=== PATIENT | male | born 1955 | race Caucasian/White ===

== ENCOUNTER → 2016-09-09 | Outpatient (REF) ==
[~2016-09-09] MED LIST: ASPI-84; LACT1TAB6; MYCO500T34; NR-TACRO1; PREN1TAB39
--- NOTE | 2016-09-09 11:06 | Diagnostic Imaging Report ---
Bilateral shoulder radiographs, 3 views on each side. INDICATION: Bilateral shoulder pain. FINDINGS: Left shoulder: No fracture, dislocation or radiopaque foreign body. No significant arthritic changes seen. Right shoulder: There is mild subchondral sclerosis at the acromioclavicular joint compatible with mild osteoarthritis with no significant osteophytes. No fracture, dislocation or radiopaque foreign body. IMPRESSION: Mild osteoarthritis in the right AC joint. Dictated by: Dictated on workstation # [id number]
--- NOTE | 2016-09-09 11:19 | Diagnostic Imaging Report ---
AP lateral and oblique views of the cervical spine with open-mouth odontoid view. INDICATION: Pain. FINDINGS: There is satisfactory alignment of the cervical spine. The vertebral body heights and disc heights are preserved. There is a satisfactory alignment at the lateral masses of C1 and C2. The oblique projections demonstrate evidence of neural foraminal narrowing of severe degree at C3/C4 level bilaterally. IMPRESSION: Severe bilateral neuroforaminal narrowing at C3/C4 level is suggested. This can be confirmed with CT scan or MRI of the cervical spine. Dictated by: Dictated on workstation # [id number]
== END | disposition home or self-care (01) ==
LOC: OCC 10:16
PROVIDERS: ATTEND Nurse Practitioner Family
CPT/HCPCS: 72050

== ENCOUNTER → 2016-09-09 | Outpatient (REF) ==
--- NOTE | 2016-09-09 17:26 | Diagnostic Imaging Report ---
PROCEDURE: MR imaging cervical spine without contrast. INDICATION: Moving plywood one month prior, felt a pop in right shoulder. Now with bilateral shoulder pain with tingling into the bilateral arms. Denies current neck pain. TECHNIQUE: Multiplanar and multisequence noncontrast MR imaging was performed of the cervical spine. COMPARISON: Radiographs 09/09/2016. FINDINGS: Examination compromised with patient motion artifact. Cervical spinal alignment is relatively anatomic. Cervical vertebral body heights maintained without concerning geographic lesion. Odontoid unremarkable. Cervicocranial junction unremarkable. C2-C3 level unremarkable. C3-C4 level demonstrates a moderate loss of disc space height. Rather prominent endplate osteophyte formation and disc bulges noted. There is presence of spinal canal stenosis. AP dimension of spinal canal narrowed to 6 mm. Rather marked bilateral foraminal narrowing is also present. C4-C5 level demonstrates preservation of disc space height. However, there does appear to be mild endplate osteophyte and slight disc bulge and thickening of the posterior longitudinal ligament. There is some flattening of the ventral thecal sac. AP dimension of spinal canal at 9 mm. Likely mild bilateral foraminal narrowing. C5-C6 level with minimal posterior spondylitic ridging without significant stenosis. C6-C7 level with minimal degenerative changes without significant stenosis. C7-T1 level trace anterolisthesis, otherwise, unremarkable without significant stenosis. There does appear to be suggestion of some altered signal intensity within the cord at C3-C4 level, may be reflective of underlying edema. IMPRESSION: 1. There does appear to be rather significant bilateral foraminal and spinal canal stenosis C3-C4 level owing to disc and osteophyte formation. Early cord edema not excluded and suspect. 2. Mild narrowing but less severe at C4-C5 level. Report was called to KERWIN Yoder at 5:12 p.m., by kade (for ADE) with message left on her direct voice mail. Dictated by: Dictated on workstation # [id number]
--- NOTE | 2016-09-09 19:25 | Diagnostic Imaging Report ---
EXAMINATION: Two views of the skull. INDICATION: Check for metal for MRI. FINDINGS: There is no intraorbital or intracranial radiopaque metallic foreign body seen. The visualized paranasal sinuses appear aerated. IMPRESSION: No metallic foreign body in the orbits or intracranially is seen. Dictated by: Dictated on workstation # [id number]
== END | disposition home or self-care (01) ==
LOC: RAD 15:32
PROVIDERS: ATTEND Nurse Practitioner Family
CPT/HCPCS: 70250; 72141

== ENCOUNTER 2016-12-26 20:56 | Emergency (ER) | payer OTHER ==
[~2016-12-26] VITALS: Ht 175.3 cm; Wt 81.6 kg
[2016-12-26] MEDS ORDERED: METO-333 (21:15)
[2016-12-26] MEDS ORDERED: LACT1CAP8 PO (21:15)
[2016-12-26] MEDS ORDERED: OMEP40CA36 (21:15)
[2016-12-26] MEDS ORDERED: TACR1CAP8 (21:15)
--- NOTE | 2016-12-26 21:43 | Diagnostic Imaging Report ---
INDICATION: Right ankle pain and swelling x2 days AP, oblique, and lateral views of the right ankle were obtained. No definite acute fracture or acute bony abnormality seen. There is soft tissue swelling. There are vascular calcifications. There are chronic changes of the talonavicular joint. There is some calcaneal spurring. IMPRESSION: Chronic findings and soft tissue swelling. No definite acute abnormality. Dictated by: Dictated on workstation # [id number]
--- NOTE | 2016-12-26 21:44 | ED Lower Extremity ---
General Chief Complaint: Lower Extremity Stated Complaint: R FOOT INJ Nursing Triage Note: c/o R ankle pain after taking new boot off Nursing Sepsis Screen: No Definite Risk Source: patient, spouse Exam Limitations: no limitations History of Present Illness Time seen by provider: 21:44 Initial Comments 61 yo male patient presents to the ED with c/o rt ankle pain after taking his boot off yesterday. Location Injury Occurred: home Onset: yesterday Pain/Injury Location: right ankle Method of Injury: twisted Modifying Factors: Worse With Movement Allergies and Home Medications Allergies Coded Allergies: No Known Drug Allergies (Unverified , 09/17/05) Home Medications Aspirin 81 Mg Tablet., (Reported) Lactobacillus Acidophilus 1 Each Tab.chew, (Reported) Lactobacillus Acidophilus 1 Each Capsule, 1 EACH PO, (Reported) Metoprolol Tartrate 25 Mg Tablet, #60 (Reported) Mycophenolate Mofetil 500 Mg Tablet, (Reported) Omeprazole 40 Mg Capsule.dr, #30 (Reported) Vits W-Ca,Fe,Fa(<1MG) 1 Each Tablet, (Reported) Tacrolimus 1 Mg Capsule, #150 (Reported) Constitutional: no symptoms reported Musculoskeletal: see HPI, joint pain, joint swelling Skin: No change in color Psychiatric/Neurological: Denies Numbness, Denies Paresthesia, Denies Tingling , Denies Weakness All Other Systems Reviewed Negative Unless Noted: Yes (Negative excepted noted.) Past Uhvjekq-Lxryku-Twikpk Hx Patient Social History Alcohol Use: Denies Use Recreational Drug Use: No Smoking Status: Never a Smoker Type Used: Cigarettes Recent Foreign Travel: No Contact w/Someone Who Travel: No Recent Infectious Disease Expo: No Recent Hopitalizations: No Surgeries HX Surgeries: Yes Surgeries: Eye Surgery, Kidney Transplant, Orthopedic, Pancreatic, Penile Implant Respiratory Hx Respiratory Disorders: Yes Respiratory Disorders: Asthma Cardiovascular Hx Cardiac Disorders: Yes (CHF) Cardiac Disorders: Cardiomyopathy, Hypertension Neurological Hx Neurological Disorders: No Reproductive System Hx Reproductive Disorders: No Sexually Transmitted Disease: No Genitourinary Hx Genitourinary Disorders: Yes Genitourinary Disorders: Renal Failure Gastrointestinal Hx Gastrointestinal Disorders: No Musculoskeletal Hx Musculoskeletal Disorders: Yes Musculoskeletal Disorders: Fractures Endocrine Hx Endocrine Disorders: Yes Endocrine Disorders: Diabetes, Non-Insulin dep HEENT HX ENT Disorders: Yes (RIGHT EYE RETINOPATHY--S/P LASER SURGERY 1996) HEENT Disorders: Glaucoma Cancer Hx Cancer: No Psychosocial Hx Psychiatric Problems: No Integumentary HX Skin/Integumentary Disorder: No Blood Transfusions Hx Blood Disorders: No Reviewed Nursing Assessment Reviewed/Agree w Nursing PMH: Yes Family Medical History Significant Family History: No Pertinent Family Hx Physical Exam Vital Signs Vital Sign - Last 12Hours 12/26/16 21:05 Temp 98.2 Pulse 75 Resp 18 B/P (MAP) 145/86 Pulse Ox 96 Capillary Refill : Less Than 3 Seconds General Appearance: WD/WN, no apparent distress Cardiovascular: normal peripheral pulses Legs: bilateral leg non-tender, bilateral leg normal inspection, bilateral leg normal range of motion, bilateral leg no evidence of injury Knees: bilateral knee non-tender, bilateral knee normal inspection, bilateral knee normal range of motion, bilateral knee no evidence of injury Ankles: left ankle non-tender, left ankle normal inspection, left ankle normal range of motion, left ankle no evidence of injury, right ankle limited range of motion, right ankle pain, right ankle soft tissue tenderness, right ankle swelling Feet: bilateral foot non-tender, left foot normal inspection, bilateral foot normal range of motion, bilateral foot no evidence of injury, right foot swelling Neurologic/Tendon: normal sensation, normal motor functions, normal tendon functions, responds to pain, no evidence tendon injury Neurologic/Psychiatric: no motor/sensory deficits, alert, normal mood/affect, oriented x 3 Skin: normal color, warm/dry, No ecchymosis Progress/Results/Core Measures Results/Orders My Orders Orders - RACHEL MACHADO Ankle, Right, 3 Views (12/26/16 21:23) Vital Signs/I&O Vital Sign - Last 12Hours 12/26/16 12/26/16 21:05 21:54 Temp 98.2 98.2 Pulse 75 75 Resp 18 18 B/P (MAP) 145/86 Pulse Ox 96 96 Blood Pressure Mean: 105 Diagnostic Imaging Diagonstic Imaging: Xray Plain Films/CT/US/NM/MRI: ankle Comments No definite acute fracture or acute bony abnormality seen. There is soft tissue swelling. There are vascular calcifications. There are chronic changes of the talonavicular joint. There is some calcaneal spurring. IMPRESSION: Chronic findings and soft tissue swelling. No definite acute abnormality. Dictated on workstation # [id number] Reviewed: Reviewed by Me (radiology report reviewed by me) Departure Communication Progress Notes Diagnostic findings discussed with the patient. Plan for discharge to home. Impression Impression: Primary Impression: Right ankle sprain Qualified Codes: S93.401A - Sprain of unspecified ligament of right ankle, initial encounter Disposition: HOME, SELF-CARE Condition: Improved Departure-Patient Inst. Decision time for Depature: 21:45 Referrals: RUBEN LEWIS (PCP) Primary Care Physician VESNA FAUSTIN DO (Family) Primary Care Physician Patient Instructions: Ankle Sprain (DC) Add. Discharge Instructions: All discharge instructions reviewed with patient and/or family. Voiced understanding. Tendinitis strength [id number] as directed for pain. Ibuprofen 800 mg by mouth every 8 hours as needed for pain. Elevate the right ankle on pillows. Ice pack for 20 minute intervals as needed for pain. Dima wrap as instructed. Follow-up with your family practitioner for recheck if no improvement in symptoms in 7-10 days. Return to the emergency department for worsened symptoms or any other concerns. RACHEL MACHADO Dec 26, 2016 21:44
[2016-12-26 21:54] VITALS: BP 145/86
== END 2016-12-26 21:55 | disposition home or self-care (01) ==
LOC: EDUNIT# 20:56 → ER 20:58
DX: S93.401A Sprain of unspecified ligament of right ankle, initial encounter (principal); E11.9 Type 2 diabetes mellitus without complications; I11.0 Hypertensive heart disease with heart failure; I50.9 Heart failure, unspecified; J45.909 Unspecified asthma, uncomplicated; Z87.81 Personal history of (healed) traumatic fracture; Z94.0 Kidney transplant status; Z79.82 Long term (current) use of aspirin; X50.0XXA Overexertion from strenuous movement or load, initial encounter; Y92.009 Unspecified place in unspecified non-institutional (private) residence as the place of occurrence of the external cause
CPT/HCPCS: 73610; 99283

== ENCOUNTER → 2017-02-04 | Outpatient (CLI) | payer OTHER ==
[~2017-02-04] MED LIST changes: +LACT1CAP8 PO; +METO-333; +OMEP40CA36; +TACR1CAP8
--- NOTE | 2017-02-04 16:01 | Diagnostic Imaging Report ---
PROCEDURE: US right lower extremity venous. INDICATION: Right leg pain. EXAMINATION: Grayscale and color Doppler evaluation of the deep veins of the right lower extremity were performed with waveform analysis. FINDINGS: Continuous venous flow is present. No intraluminal filling defect is identified. There is normal compressibility and response to augmentation. No abnormal perivascular fluid collection is identified. IMPRESSION: No ultrasound evidence of right lower extremity deep venous thrombosis. Dictated by: Dictated on workstation # [id number]
== END ==
LOC: RAD 14:52
DX: M79.661 Pain in right lower leg (principal)

== ENCOUNTER → 2017-05-02 | Outpatient (CLI) | payer OTHER ==
--- NOTE | 2017-05-02 18:39 | Diagnostic Imaging Report ---
CLINICAL INDICATION: Patient with thyromegaly. COMPARISONS: None. FINDINGS: THYROID NODULES: There is a 4 mm x 4 mm nodule within the mid to lower right thyroid gland which is hypoechoic and circumscribed. There is another 8 mm x 5 mm x 8 mm heterogeneous hypoechoic nodule within the mid to inferior aspect of left thyroid gland. THYROID GLAND: Besides the thyroid nodules, the thyroid gland has normal size, shape and echogenicity. The right lobe measures 4.5 cm x 2.0 cm x 1.9 cm and the left lobe measures 5.0 cm x 1.7 cm x 2.1 cm in their three dimensions. ISTHMUS: The isthmus is unremarkable and measures 3.8 mm in thickness. IMPRESSION: Bilateral thyroid gland nodules with the largest measuring 8 mm in the left mid to lower thyroid gland region. Otherwise, the remainder of the thyroid gland is unremarkable. Dictated by: Dictated on workstation # [id number]
== END ==
LOC: RAD 13:24
PROVIDERS: ATTEND Family Medicine
DX: E04.2 Nontoxic multinodular goiter (principal)
CPT/HCPCS: 76536

== ENCOUNTER 2019-02-25 21:03 | Inpatient (IN) | payer OTHER ==
[~2019-02-25] VITALS: Ht 175.2 cm; Wt 75.2 kg
[~2019-02-25 21:03] MED LIST changes: -METO-333; +METO-333 PO; -OMEP40CA36; +OMEP40CA36 PO; -TACR1CAP8; +TACR1CAP8 PO
[2019-02-25] MEDS ORDERED: NS IV 1000 ML 1,000 ML IV SCH (21:38)
[2019-02-25] MEDS ORDERED: NS IV 500 ML 500 ML IV ONE (21:38)
[2019-02-25] MEDS ORDERED: RT-ALBUTEROL/IPRATROPIUM 3 ML (DUONEB) VIAL ONE (21:41)
[2019-02-25] MEDS ORDERED: CEFEPIME INJECTION 1,000 MG in WATER (STERILE) FOR INJECTION 10 ML IV ONE (21:45)
[2019-02-25] MEDS ORDERED: RT-ALBUTEROL/IPRATROPIUM 3 ML (DUONEB) VIAL INH ONE (21:45)
--- NOTE | 2019-02-25 21:55 | ED Respiratory ---
General Stated Complaint: COUGH,CONGESTION Source: patient Exam Limitations: no limitations History of Present Illness Date Seen by Provider: Feb 25, 2019 Time Seen by Provider: 21:19 Initial Comments Patient presents to ER by private conveyance with his and chief complaint the past couple days she's been having some chills subjective fevers had Tylenol this morning as well as coughing and shortness of breath. He has a history of being on Prograf and CellCept secondary to kidney and pancreas transplant. He follows at as well as Dr. Faustin locally. He is having some generalized malaise but no pain. No chest pain nausea vomiting diarrhea. He has a distant history of mild intermittent asthma but does not take breathing treatments routinely. No wheezing stridor Allergies and Home Medications Allergies Coded Allergies: No Known Drug Allergies (Unverified , 09/17/05) Patient Home Medication List Home Medication List Reviewed: Yes Review of Systems Review of Systems Constitutional: chills, fever (subjective), malaise EENTM: No hearing loss, No ear pain Respiratory: cough Gastrointestinal: No abdominal pain, No constipation, No diarrhea, No nausea Genitourinary: No discharge, No dysuria Musculoskeletal: No back pain, No joint pain Past Qjghyad-Lzfkiq-Gndneg Hx Patient Social History Alcohol Use: Denies Use Recreational Drug Use: No Smoking Status: Former Smoker Type Used: Cigarettes, Smokeless Tobacco Former Smoker, Quit: Jan 28, 1979 Recent Foreign Travel: No Contact w/Someone Who Travel: No Recent Hopitalizations: No Past Medical History Surgeries: Yes Eye Surgery, Kidney Transplant, Orthopedic, Pancreatic, Penile Implant Respiratory: Yes Asthma Cardiac: Yes (CHF) Cardiomyopathy, Hypertension Neurological: No Reproductive Disorders: No Sexually Transmitted Disease: No Renal Failure Gastrointestinal: No Musculoskeletal: Yes Fractures Endocrine: Yes Diabetes, Non-Insulin dep Glaucoma Cancer: No Psychosocial: No Integumentary: No Blood Disorders: No Family Medical History No Pertinent Family Hx Physical Exam Vital Signs - First Documented 02/25/19 21:27 Temp 38.1 Pulse 96 Resp 19 B/P (MAP) 132/87 (102) Pulse Ox 96 O2 Delivery Nasal Cannula Capillary Refill : Height: 5'9" Weight: 180lbs. oz. 81.065876qg; 24.36 BMI Method:Stated General Appearance: WD/WN, mild distress Eyes: Bilateral Eye Normal Inspection, Bilateral Eye PERRL, Bilateral Eye EOMI HEENT: PERRL/EOMI, pharynx normal Neck: non-tender, full range of motion, normal inspection Respiratory: chest non-tender, no accessory muscle use, respiratory distress (mild with hypoxia 90-92%.), decreased breath sounds, crackles ( Left base) Cardiovascular: normal peripheral pulses, regular rate, rhythm (95 bpm) Gastrointestinal: normal bowel sounds, non tender, soft Extremities: normal range of motion, non-tender Neurologic/Psychiatric: alert, normal mood/affect, oriented x 3 Skin: normal color, warm/dry Focused Exam Sepsis Stage: Sepsis Possible Source: Pulmonary Lactate Level 02/25/19 21:40: Lactic Acid Level 0.85 Time of Focused Exam: 23:14 Respiratory: No Accessory Muscle Use, No Respiratory Distress, Rales Cardiovascular: Regular Rate, Rhythm, No Edema, Normal Peripheral Pulses Capillary Refill: Less Than 3 Seconds Peripheral Pulses: 2+ Radial Pulses (R), 2+ Radial Pulses (L) Skin: normal color, warm/dry Lactic Acid Level Laboratory Tests Test 02/25/19 21:40 Lactic Acid Level 0.85 MMOL/L (0.50-2.00) Within 3hrs of presentation: Admin fluids, Admin ABX, Blood cultures prior to ABX's, Focus exam, Lactate level Progress/Results/Core Measures Suspected Sepsis SIRS Temperature: Pulse: Respiratory Rate: Laboratory Tests 02/25/19 21:40: White Blood Count 8.1 Blood Pressure / Mean: 02/25/19 21:40: Lactic Acid Level 0.85 Laboratory Tests 02/25/19 21:40: Creatinine 1.02, INR Comment 1.1, Platelet Count 178, Total Bilirubin 0.9 Results/Orders Lab Results Laboratory Tests Test 02/25/19 21:40 Range/Units White Blood Count 8.1 4.3-11.0 10^3/uL Red Blood Count 5.13 4.35-5.85 10^6/uL Hemoglobin 14.0 13.3-17.7 G/DL Hematocrit 42 40-54 % Mean Corpuscular Volume 81 80-99 FL Mean Corpuscular Hemoglobin 27 25-34 PG Mean Corpuscular Hemoglobin Concent 34 32-36 G/DL Red Cell Distribution Width 13.8 10.0-14.5 % Platelet Count 178 130-400 10^3/uL Mean Platelet Volume 10.4 7.4-10.4 FL Neutrophils (%) (Auto) 77 H 42-75 % Lymphocytes (%) (Auto) 7 L 12-44 % Monocytes (%) (Auto) 14 H 0-12 % Eosinophils (%) (Auto) 1 0-10 % Basophils (%) (Auto) 0 0-10 % Neutrophils # (Auto) 6.3 1.8-7.8 X 10^3 Lymphocytes # (Auto) 0.6 L 1.0-4.0 X 10^3 Monocytes # (Auto) 1.1 H 0.0-1.0 X 10^3 Eosinophils # (Auto) 0.1 0.0-0.3 10^3/uL Basophils # (Auto) 0.0 0.0-0.1 10^3/uL Prothrombin Time 14.3 12.2-14.7 SEC INR Comment 1.1 0.8-1.4 Activated Partial Thromboplast Time 30 24-35 SEC Sodium Level 138 135-145 MMOL/L Potassium Level 3.9 3.6-5.0 MMOL/L Chloride Level 103 98-107 MMOL/L Carbon Dioxide Level 22 21-32 MMOL/L Anion Gap 13 5-14 MMOL/L Blood Urea Nitrogen 22 H 7-18 MG/DL Creatinine 1.02 0.60-1.30 MG/DL Estimat Glomerular Filtration Rate > 60 BUN/Creatinine Ratio 22 Glucose Level 113 H 70-105 MG/DL Lactic Acid Level 0.85 0.50-2.00 MMOL/L Calcium Level 8.9 8.5-10.1 MG/DL Corrected Calcium 9.3 8.5-10.1 MG/DL Total Bilirubin 0.9 0.1-1.0 MG/DL Aspartate Amino Transf (AST/SGOT) 19 5-34 U/L Alanine Aminotransferase (ALT/SGPT) 19 0-55 U/L Alkaline Phosphatase 87 40-136 U/L Total Protein 6.9 6.4-8.2 GM/DL Albumin 3.5 3.2-4.5 GM/DL Micro Results Microbiology 02/25/19 Influenza Types A,B Antigen (KENY) - Final, Complete My Orders Orders - MARILU ROBLES Albuterol/Ipra Inhalation Soln (Duoneb I (02/25/19 21:41) Cbc With Automated Diff (02/25/19 21:38) Comprehensive Metabolic Panel (02/25/19 21:38) Blood Culture (02/25/19 21:38) Sputum Culture (02/25/19 21:38) Urinalysis (02/25/19 21:38) Urine Culture (02/25/19 21:38) Protime With Inr (02/25/19 21:38) Partial Thromboplastin Time (02/25/19 21:38) Ed Iv/Invasive Line Start (02/25/19 21:38) Ed Iv/Invasive Line Start (02/25/19 21:38) Vital Signs Adult Sepsis Patie Q15M (02/25/19 21:38) O2 (02/25/19 21:38) Remove Rings In Anticipation O (02/25/19 21:38) Lactic Acid Analyzer (02/25/19 21:38) Influenza A And B Antigens (02/25/19 21:38) Ns Iv 1000 Ml (Sodium Chloride 0.9%) (02/25/19 21:38) Cefepime Injection (Maxipime Injection) (02/25/19 21:45) Ed Iv/Invasive Line Start (02/25/19 21:38) Ns Iv 500 Ml (Sodium Chloride 0.9%) (02/25/19 21:38) Chest Pa/Lat (2 View) (02/25/19 21:38) Albuterol/Ipra Inhalation Soln (Duoneb I (02/25/19 21:45) Svn Small Volume Nebulizer (02/25/19 21:38) Manual Differential (02/25/19 21:40) Ricardo Prep (02/25/19 22:19) Acetaminophen Tablet (Tylenol Tablet) (02/25/19 23:15) Medications Given in ED Current Medications Medications Dose Ordered Sig/Otilio Route Start Time Stop Time Status Last Admin Dose Admin Albuterol/ Ipratropium 3 ml ONCE ONCE INH 02/25/19 21:45 02/25/19 21:48 DC 02/25/19 21:43 3 ML Cefepime HCl 1000 mg/Sterile Water 10 ml @ 200 mls/hr ONCE ONCE IV 02/25/19 21:45 02/25/19 21:48 DC 02/25/19 22:06 200 MLS/HR Vital Signs/I&O 02/25/19 02/25/19 02/25/19 02/25/19 21:27 21:30 21:30 21:55 Temp 38.1 Pulse 96 Resp 19 B/P (MAP) 132/87 (102) Pulse Ox 96 96 93 O2 Delivery Nasal Cannula Nasal Cannula Nasal Cannula Nasal Cannula O2 Flow Rate 2.00 2.00 2.00 Capillary Refill : Progress Note #1: Time: 21:56 Progress Note Patient says he got minimal relief from DuoNeb. He has more audible crackles on the left base and some on the right base now. No wheezing. Septic workup based on a heart rate over 90, hypoxia and suspect he would have an elevated white count if he was not on antibiotics. Start with cefepime, 1500 cc which is 20 mL /kg and look for pneumonia versus bronchitis. Influenza swab. White plaque on the tongue was negative on RICARDO prep. Progress Note #2: Time: 22:57 Progress Note Influenza is negative chest has some patchy infiltrates along the base right and some posteriorly seen on the lateral view. Diagnostic Imaging Diagonstic Imaging: Xray Plain Films/CT/US/NM/MRI: chest (2v) Comments Patchy infiltrates seen along the base right as well as in the lateral view left base. Reviewed: Reviewed by Me Departure Communication (Admissions) Discussed case lab imaging findings with Dr. Wang and she agrees to admit the patient. Impression Primary Impression: Pneumonia Qualified Codes: J18.1 - Lobar pneumonia, unspecified organism Additional Impressions: Sepsis Qualified Codes: A41.9 - Sepsis, unspecified organism Hypoxia Disposition: ADMITTED INPATIENT Condition: Stable Admissions Decision to Admit Reason: Admit from ER (General) Decision to Admit/Date: Feb 25, 2019 Time/Decision to Admit Time: 22:47 Departure-Patient Inst. Referrals: VESNA FAUSTIN DO (PCP/Family) Primary Care Physician MARILU ROBLES Feb 25, 2019 21:55
[2019-02-25 21:59] LABS: BASOPHILS % (AUTO) 0 % (0-10); EOSINOPHILS # (AUTO) 0.1 10^3/uL (0.0-0.3); EOSINOPHILS % (AUTO) 1 % (0-10); HEMATOCRIT 42 % (40-54); LYMPHOCYTES # (AUTO) 0.6 X 10^3 (1.0-4.0); LYMPHOCYTES % (AUTO) 7 % (12-44); MEAN CORPUSCULAR HEMOGLOBIN 27 PG (25-34); MEAN CORPUSCULAR HGB CONC 34 G/DL (32-36); MEAN CORPUSCULAR VOLUME 81 FL (80-99); MEAN PLATELET VOLUME 10.4 FL (7.4-10.4); MONOCYTES # (AUTO) 1.1 X 10^3 (0.0-1.0); MONOCYTES % (AUTO) 14 % (0-12); NEUTROPHILS # (AUTO) 6.3 X 10^3 (1.8-7.8); NEUTROPHILS % (AUTO) 77 % (42-75); PLATELET COUNT 178 10^3/uL (130-400); RED CELL DISTRIBUTION WIDTH 13.8 % (10.0-14.5); WHITE BLOOD COUNT 8.1 10^3/uL (4.3-11.0)
[2019-02-25 22:09] LABS: INR 1.1 (0.8-1.4); PROTHROMBIN TIME PATIENT 14.3 SEC (12.2-14.7)
[2019-02-25 22:18] LABS: ALANINE AMINOTRANSFERASE 19 U/L (0-55); ALBUMIN 3.5 GM/DL (3.2-4.5); ALKALINE PHOSPHATASE 87 U/L (40-136); BILIRUBIN,TOTAL 0.9 MG/DL (0.1-1.0); BUN/CREATININE RATIO 22; CALCIUM 8.9 MG/DL (8.5-10.1); CARBON DIOXIDE 22 MMOL/L (21-32); CHLORIDE 103 MMOL/L (98-107); CREATININE SERUM 1.02 MG/DL (0.60-1.30); GFR ESTIMATED > 60; GLUCOSE 113 MG/DL (70-105); POTASSIUM 3.9 MMOL/L (3.6-5.0); SODIUM 138 MMOL/L (135-145); TOTAL PROTEIN 6.9 GM/DL (6.4-8.2)
[2019-02-25] MEDS ORDERED: ACETAMINOPHEN 500 MG TAB (TYLENOL) PO ONE (23:15)
[2019-02-25 23:35] LABS: ATYPICAL LYMPHOCYTES 4 %; EOSINOPHILS % (MANUAL) 1 %; LYMPHOCYTES % (MANUAL) 4 %; MONOCYTES % (MANUAL) 13 %; NEUTROPHILS % (MANUAL) 78 %
[2019-02-26] VITALS (7 sets, daily range): BP systolic 145–205; BP diastolic 77–98
--- NOTE | 2019-02-26 00:30 | NUR ---
NATHAN JIMENEZ admitted to room 413-1, with an admitting diagnosis of PNEUMONIA, SEPSIS, HYPOXEMIA, on 02/25/19 from ED [facility], accompanied by STAFF.NATHAN JIMENEZ introduced to surroundings, call light, bed controls, phone, TV, temperature control, lights, meal times, smoking policy, visitor policy, side rail policy, bathrooms and showers. Patient Rights given to patient in the handbook. NATHAN JIMENEZ verbalizes understanding that [facility] is not responsible for the loss or damage to any personal effects or valuables that are kept in the patients possession during their hospitalization. Patient and/or family were informed about the Rapid Response Team and its purpose.
[2019-02-26] MEDS ORDERED: ACETAMINOPHEN 500 MG TAB (TYLENOL) PO PRN (02:30)
[2019-02-26] MEDS ORDERED: ONDANSETRON 4 MG/2 ML (SDV) Z0FRAN IVP PRN (02:30)
[2019-02-26] MEDS: NS W/KCL 20 MEQ/L 1,000 ML IV SCH ×3 (03:05→18:25)
[2019-02-26] MEDS: guaiFENesin/CODEINE (ROBITUSSIN AC) 10ML UDC PO PRN ×2 (03:05→18:14)
[2019-02-26] MEDS ORDERED: RT-ALBUTEROL/IPRATROPIUM 3 ML (DUONEB) VIAL INH PRN (05:00)
--- NOTE | 2019-02-26 06:03 | Diagnostic Imaging Report ---
INDICATION: Cough and congestion PA and lateral views of the chest are obtained with comparison made to the study of 10/16/2006. Overall heart size and pulmonary vascularity are within normal limits. There are patchy infiltrates in the lung bases bilaterally. No pneumothorax is seen. There is no significant pleural fluid. IMPRESSION: Patchy bibasilar infiltrate which may be due to pneumonitis or pneumonia. This could be on the basis of aspiration and clinical correlation is recommended. Dictated by: Dictated on workstation # [id number]
[2019-02-26 06:08] LABS: CLARITY,URINE CLEAR; COLOR,URINE YELLOW; GLUCOSE, URINE (UA) NEGATIVE (NEGATIVE); KETONES,URINE 3+ (NEGATIVE); LEUKOCYTE ESTERASE ,URINE 1+ (NEGATIVE); NITRITE,URINE NEGATIVE (NEGATIVE); PH,URINE 6 (5-9); PROTEIN,URINE 2+ (NEGATIVE); UROBILINOGEN,URINE 1 MG/DL (NORMAL)
[2019-02-26 06:19] LABS: BACTERIA,URINE TRACE /HPF; BILIRUBIN,URINE 1+ (NEGATIVE); HYALINE CASTS, URINE 0-2 /LPF; SQUAMOUS EPITHELIAL CELL,UR 0-2 /HPF
[2019-02-26 06:26] LABS: BASOPHILS % (AUTO) 0 % (0-10); EOSINOPHILS # (AUTO) 0.1 10^3/uL (0.0-0.3); EOSINOPHILS % (AUTO) 2 % (0-10); HEMATOCRIT 38 % (40-54); HEMOGLOBIN 12.7 G/DL (13.3-17.7); LYMPHOCYTES # (AUTO) 0.7 X 10^3 (1.0-4.0); LYMPHOCYTES % (AUTO) 11 % (12-44); MEAN CORPUSCULAR HEMOGLOBIN 27 PG (25-34); MEAN CORPUSCULAR HGB CONC 34 G/DL (32-36); MEAN CORPUSCULAR VOLUME 82 FL (80-99); MEAN PLATELET VOLUME 10.4 FL (7.4-10.4); MONOCYTES # (AUTO) 0.9 X 10^3 (0.0-1.0); MONOCYTES % (AUTO) 15 % (0-12); NEUTROPHILS # (AUTO) 4.5 X 10^3 (1.8-7.8); NEUTROPHILS % (AUTO) 72 % (42-75); PLATELET COUNT 150 10^3/uL (130-400); RED CELL DISTRIBUTION WIDTH 13.6 % (10.0-14.5); WHITE BLOOD COUNT 6.2 10^3/uL (4.3-11.0)
[2019-02-26] MEDS: LACTOBACILLUS ACIDOPHILUS (PROBIOTIC) CAPSULE PO SCH ×2 (06:26→16:58)
[2019-02-26 06:46] LABS: BUN/CREATININE RATIO 23; CARBON DIOXIDE 22 MMOL/L (21-32); CHLORIDE 108 MMOL/L (98-107); CREATININE SERUM 0.81 MG/DL (0.60-1.30); GFR ESTIMATED > 60; GLUCOSE 116 MG/DL (70-105); POTASSIUM 3.6 MMOL/L (3.6-5.0); SODIUM 139 MMOL/L (135-145)
[2019-02-26] MEDS: RT-ALBUTEROL/IPRATROPIUM 3 ML (DUONEB) VIAL INH SCH ×2 (07:11→21:36)
[2019-02-26] MEDS ORDERED: CEFEPIME INJECTION 1,000 MG in WATER (STERILE) FOR INJECTION 10 ML IV NR (07:30)
[2019-02-26] MEDS ORDERED: AZITHROMYCIN INJECTION 500 MG in NS (IVPB) 250 ML IV NR (07:30)
[2019-02-26] MEDS: PANTOPRAZOLE 40 MG (PROTONIX) TAB PO SCH (08:22)
[2019-02-26] MEDS ORDERED: ASPIRIN 81 MG CHEW (CHILDREN'S ASA) PO SCH (09:00)
--- NOTE | 2019-02-26 09:00 | NUR ---
DR. FAUSTIN NOTIFIED OF ELEVATED B/P 205/98.
[2019-02-26] MEDS ORDERED: PATIENT MAY USE OWN MED,SINGLE MED PO SCH (09:15)
--- NOTE | 2019-02-26 09:19 | Diagnostic Imaging Report ---
PATIENT HISTORY: Fever, headache, cough, congestion. TECHNIQUE: 2 views of the chest COMPARISON: 02/25/2019 FINDINGS: There is increasing airspace opacity in the right lower lobe which is more pronounced on today's exam, concerning for pneumonia in the appropriate clinical setting. No pleural effusion is seen. There is no pneumothorax. No acute osseous abnormality is seen. The cardiac silhouette is normal in size. IMPRESSION: Increasing airspace opacity at the right lung base, concerning for pneumonia in the appropriate clinical setting. Dictated by: Dictated on workstation # [id number]
[2019-02-26] MEDS ORDERED: meTOproloL SUCCINATE 50 MG (TOPROL XL) TAB PO SCH (09:30)
[2019-02-26] MEDS: CELLCEPT 250 MG PO SCH ×2 (09:32→20:31)
[2019-02-26] MEDS: TACROLIMUS 1MG CAPSULE PO SCH ×2 (09:33→20:31)
[2019-02-26] MEDS ORDERED: TACR1CAP8 PO (11:04)
[2019-02-26] MEDS ORDERED: ASPI-983 PO (11:04)
[2019-02-26] MEDS ORDERED: NF-MYC250C PO ×2 (11:04)
[2019-02-26] MEDS ORDERED: MULT1TAB69 PO (11:06)
--- NOTE | 2019-02-26 11:07 | NUR ---
SPOKE WITH THE PATIENT AND FAMILY IN THE ROOM ABOUT MEDICATIONS. SHE WAS ABLE TO LIST EXACTLY WHAT HE TAKES. I COULD SEE THE OMEPRAZOLE AND METOPROLOL ON THE EXT MED HX AND THEY HAD THE CELLCEPT AND PROGRAF BOTTLES IN LOCK UP IN THE ROOM THE METOPROLOL WAS FILLED #60 FOR 30 DAYS HOWEVER SHE STATES HE IS ONLY TAKING ONE AT HS, WHEN HE TAKES IT BID HIS BLOOD PRESSURE GETS TOO LOW. BOTTLES HE HAD IN THE ROOM: 12-12-18 CELLCEPT 250MG 2 AM 1 HS #270 [facility] [phone] 02-19-19 TACROLIMUS 1MG 2 AM 1 HS #90 FROM [facility] [phone] HE TAKES ACIDOPHILUS DAILY, A MTV DAILY, AND ASPIRIN 81MG DAILY OTC.
[2019-02-26] MEDS ORDERED: PATIENT MAY USE OWN MEDS, ALL MC SCH (12:30)
--- NOTE | 2019-02-26 12:35 | History & Physical ---
History of Present Illness History of Present Illness Reason for visit/HPI Mr. Balbuena is a 63 year old man with a history of pancreatic and renal transplant who presented to the ER with a five day history of subjective fevers, chills, non-productive cough, body aches, and fatigue. He states these started off after receiving a flu shot in the office earlier that week. In the ER he was found to be febrile and have bibasilar infiltrates. Patient will be admitted for treatment of pneumonia with possible SIRS. Date of Admission Feb 25, 2019 at 23:10 Date Seen by a Provider: Feb 26, 2019 Time Seen by a Provider: 12:30 I consulted on this patient on 02/26/19 12:30 Attending Physician Eliane Wang MD Admitting Physician Nancy Faustin DO Consult Allergies and Home Medications Allergies Coded Allergies: No Known Drug Allergies (Unverified , 09/17/05) Home Medications Aspirin 81 Mg Tablet.dr, 81 MG PO DAILY, (Reported) Lactobacillus Acidophilus 1 Each Capsule, 1 CAP PO DAILY, (Reported) Metoprolol Tartrate 25 Mg Tablet, 25 MG PO HS, (Reported) Multivitamin 1 Each Tablet, 1 TAB PO DAILY, (Reported) Mycophenolate Mofetil 250 Mg Capsule, 500 MG PO DAILY, (Reported) TAKES 2 (250MG) CAPSULES Mycophenolate Mofetil 250 Mg Capsule, 250 MG PO HS, (Reported) Omeprazole 40 Mg Capsule.dr, 40 MG PO DAILY, (Reported) Tacrolimus 1 Mg Capsule, 2 MG PO DAILY, (Reported) TAKES 2 (1MG) CAPSULES Tacrolimus 1 Mg Capsule, 1 MG PO HS, (Reported) Patient Home Medication List Home Medication List Reviewed: Yes Past Zonopro-Nxaqfc-Dppzmb Hx Past Med/Social Hx: Reviewed Nursing Past Med/Soc Hx Patient Social History Alcohol Use: Denies Use Recreational Drug Use: No Smoking Status: Former Smoker Former Smoker, Quit: Jan 28, 1979 Type Used: Cigarettes, Smokeless Tobacco Recent Foreign Travel: No Contact w/other who traveled: No Recent Hopitalizations: No Recent Infectious Disease Expo: No Immunizations Up To Date Date of Pneumonia Vaccine: Feb 27, 2016 Past Medical History Surgeries: Eye Surgery, Kidney Transplant, Orthopedic, Pancreatic, Penile Implant Cardiac: Cardiomyopathy, Hypertension Reproductive: No Sexually Transmitted Disease: No Genitourinary: Renal Failure Musculoskeletal: Fractures Endocrine: Diabetes, Non-Insulin dep HEENT: Glaucoma History of Blood Disorders: No Family History No Pertinent Family Hx Review of Systems Constitutional: chills, fever, malaise EENTM: No see HPI, No no symptoms reported, No ear discharge, No hearing loss, No ear pain, No blurred vision, No double vision, No eye pain, No tearing, No vision loss, No dental problems, No hoarseness, No mouth pain, No mouth swelling, No epistaxis, No nose congestion, No nose pain, No throat pain, No throat swelling, No other Respiratory: cough Cardiovascular: No no symptoms reported, No see HPI, No chest pain, No edema, No Hx of Intervention, No palpitations, No syncope, No vascular heart diseas, No other Gastrointestinal: No RUQ, No LUQ, No RLQ, No LLQ, No no symptoms reported, No see HPI, No abdominal pain, No constipation, No diarrhea, No dysphagia, No hematemesis, No heartburn, No jaundice, No loss of appetite, No melena, No nausea, No vomiting, No other Genitourinary: No no symptoms reported, No see HPI, No decreased output, No discharge, No dysuria, No frequency, No hematuria, No hesitancy, No incontinence, No nocturia, No pain, No other Musculoskeletal: muscle pain (body aches) Skin: No no symptoms reported, No see HPI, No change in color, No change in hair/nails, No dryness, No hx of skin cancer, No lesions, No lumps, No pruritus, No rash, No other Psychiatric/Neurological: Denies No Symptoms Reported, Denies See HPI, Denies Anxiety, Denies Depressed, Denies Emotional Problems, Denies Headache, Denies Numbness, Denies Paresthesia, Denies Pre-Existing Deficit, Denies Seizure, Denies Tingling, Denies Tremors, Denies Weakness, Denies Other Physical Exam Vital Signs Vital Signs - First Documented 02/25/19 21:27 Temp 38.1 Pulse 96 Resp 19 B/P (MAP) 132/87 (102) Pulse Ox 96 O2 Delivery Nasal Cannula Capillary Refill : Less Than 3 Seconds Height, Weight, BMI Height: 5'9" Weight: 180lbs. oz. [id number]; 24.49 BMI Method:Stated General Appearance: No Apparent Distress Respiratory: Crackles (Right lower base), Rales (right lower base), Wheezing Cardiovascular: Regular Rate, Rhythm Gastrointestinal: Normal Bowel Sounds, Non Tender, Soft Extremity: Non Tender, No Calf Tenderness, No Pedal Edema, Other (SCDs in place) Neurologic/Psychiatric: Alert, Oriented x3, No Motor/Sensory Deficits Skin: Warm/Dry Comments Laboratory Tests 02/25/19 21:40: White Blood Count 8.1, Red Blood Count 5.13, Hemoglobin 14.0, Hematocrit 42, Mean Corpuscular Volume 81, Mean Corpuscular Hemoglobin 27, Mean Corpuscular Hemoglobin Concent 34, Red Cell Distribution Width 13.8, Platelet Count 178, Mean Platelet Volume 10.4, Neutrophils (%) (Auto) 77H, Lymphocytes (%) (Auto) 7L , Monocytes (%) (Auto) 14H, Eosinophils (%) (Auto) 1, Basophils (%) (Auto) 0, Neutrophils # (Auto) 6.3, Lymphocytes # (Auto) 0.6L, Monocytes # (Auto) 1.1H, Eosinophils # (Auto) 0.1, Basophils # (Auto) 0.0, Neutrophils % (Manual) 78, Lymphocytes % (Manual) 4, Monocytes % (Manual) 13, Eosinophils % (Manual) 1, Atypical Lymphocytes 4, Prothrombin Time 14.3, INR Comment 1.1, Activated Partial Thromboplast Time 30, Sodium Level 138, Potassium Level 3.9, Chloride Level 103, Carbon Dioxide Level 22, Anion Gap 13, Blood Urea Nitrogen 22H, Creatinine 1.02, Estimat Glomerular Filtration Rate > 60, BUN/Creatinine Ratio 22, Glucose Level 113H, Lactic Acid Level 0.85, Calcium Level 8.9, Corrected Calcium 9.3, Total Bilirubin 0.9, Aspartate Amino Transf (AST/SGOT) 19, Alanine Aminotransferase (ALT/SGPT) 19, Alkaline Phosphatase 87, Total Protein 6.9, Albumin 3.5 02/26/19 05:14: Urine Color YELLOW, Urine Clarity CLEAR, Urine pH 6, Urine Specific [place] 1.015L, Urine Protein 2+H, Urine Glucose (UA) NEGATIVE, Urine Ketones 3+H, Urine Nitrite NEGATIVE, Urine Bilirubin 1+H, Urine Urobilinogen 1, Urine Leukocyte Esterase 1+H, Urine RBC (Auto) NEGATIVE, Urine RBC NONE, Urine WBC 2-5, Urine Squamous Epithelial Cells 0-2, Urine Crystals NONE, Urine Bacteria TRACE, Urine Casts PRESENT, Urine Hyaline Casts 0-2H, Urine Mucus SMALLH, Urine Culture Indicated NO 02/26/19 06:04: White Blood Count 6.2, Red Blood Count 4.64, Hemoglobin 12.7L, Hematocrit 38L, Mean Corpuscular Volume 82, Mean Corpuscular Hemoglobin 27, Mean Corpuscular Hemoglobin Concent 34, Red Cell Distribution Width 13.6, Platelet Count 150, Mean Platelet Volume 10.4, Neutrophils (%) (Auto) 72, Lymphocytes (%) (Auto) 11L , Monocytes (%) (Auto) 15H, Eosinophils (%) (Auto) 2, Basophils (%) (Auto) 0, Neutrophils # (Auto) 4.5, Lymphocytes # (Auto) 0.7L, Monocytes # (Auto) 0.9, Eosinophils # (Auto) 0.1, Basophils # (Auto) 0.0, Sodium Level 139, Potassium Level 3.6, Chloride Level 108H, Carbon Dioxide Level 22, Anion Gap 9, Blood Urea Nitrogen 19H, Creatinine 0.81, Estimat Glomerular Filtration Rate > 60, BUN/Creatinine Ratio 23, Glucose Level 116H, Calcium Level 8.0L Microbiology 02/25/19 Influenza Types A,B Antigen (KENY) - Final, Complete Assessment/Plan Assessment and Plan 1. Right lower lobe pneumonia with SIRS - continue cefepime 2. Hypertension - restart home metoprolol and monitor BP 3. History of pancreatic, renal transplant - resume Cellcept and Prograf now 4. GERD - start pantoprazole Admission Diagnosis Admission Status: Inpatient Order (span 2 midnights) Reason for Inpatient Admission: Due to patient's immunocompromised state he will need at least 48 hours of IV antibiotics Clinical Quality Measures DVT/VTE Risk/Contraindication: Risk Factor Score Per Nursin RFS Level Per Nursing on Admit: 4+=Very High NANCY FAUSTIN DO Feb 26, 2019 12:35
--- NOTE | 2019-02-26 13:59 | NUR ---
RD ASSESSMENT PMHx: DM, CHF, HTN, GERD, Pancreatic & renal TXP PT INTERACTION: Pt was awake and pleasant for consult for MST score. Pt states current appetite had been poor for the past 3 days, but had improved today. Pt states no recent issues with n/v at this time. Pt states some recent episodes of diarrhea, and states last BM was this AM. Pt states recent 10# wt loss, but couldn't state timeframe of weight loss. Note unable to determine recent wt hx, per chart review. ABNORMAL LAB VALUES: Cl 108 (H); BUN 19 (H); glu 116 (H); Hgb 12.7 (L); Hct 38 (L) Est. kcal needs: 9833-6980 kcal (25-30 kcal/kg) Est. Pro needs: 60-75 g Pro (0.8-1.0 g Pro/kg) PES STATEMENT: No nutritional diagnosis at this time. INTERVENTION: Continue with current diet order of regular diet. MONITOR/EVALUATE: PO Intake Weight Status Hydration Status Lab values Jonah De La Cruz, MS, RD [phone]
[2019-02-26] MEDS: CEFEPIME INJECTION 1,000 MG in WATER (STERILE) FOR INJECTION 10 ML IV SCH ×2 (14:26→20:30)
--- NOTE | 2019-02-26 14:59 | NUR ---
Pastoral care visit.
[2019-02-26] MEDS: meTOprolol TARTRATE 25 MG (LOPRESSOR) TABLET PO SCH (20:30)
[2019-02-26] MEDS ORDERED: MYCOPHENOLATE MOFETIL 250 MG PO SCH (21:00)
[2019-02-26] MEDS ORDERED: TACROLIMUS 1 MG (PROGRAF) CAP NON-FORMULARY PO SCH (21:00)
[2019-02-27] MEDS: guaiFENesin/CODEINE (ROBITUSSIN AC) 10ML UDC PO PRN (00:11)
[2019-02-27] MEDS: CEFEPIME INJECTION 1,000 MG in WATER (STERILE) FOR INJECTION 10 ML IV SCH ×4 (02:20→20:37)
[2019-02-27 04:15] VITALS: BP 159/88
[2019-02-27 06:19] LABS: BASOPHILS % (AUTO) 0 % (0-10); EOSINOPHILS # (AUTO) 0.4 10^3/uL (0.0-0.3); EOSINOPHILS % (AUTO) 6 % (0-10); HEMATOCRIT 39 % (40-54); HEMOGLOBIN 13.1 G/DL (13.3-17.7); LYMPHOCYTES # (AUTO) 0.6 X 10^3 (1.0-4.0); LYMPHOCYTES % (AUTO) 8 % (12-44); MEAN CORPUSCULAR HEMOGLOBIN 28 PG (25-34); MEAN CORPUSCULAR HGB CONC 33 G/DL (32-36); MEAN CORPUSCULAR VOLUME 82 FL (80-99); MEAN PLATELET VOLUME 10.4 FL (7.4-10.4); MONOCYTES # (AUTO) 0.7 X 10^3 (0.0-1.0); MONOCYTES % (AUTO) 10 % (0-12); NEUTROPHILS # (AUTO) 5.3 X 10^3 (1.8-7.8); NEUTROPHILS % (AUTO) 76 % (42-75); PLATELET COUNT 140 10^3/uL (130-400); RED CELL DISTRIBUTION WIDTH 13.6 % (10.0-14.5)
[2019-02-27] MEDS: LACTOBACILLUS ACIDOPHILUS (PROBIOTIC) CAPSULE PO SCH ×2 (06:31→18:06)
[2019-02-27] MEDS: RT-ALBUTEROL/IPRATROPIUM 3 ML (DUONEB) VIAL INH SCH ×2 (07:48→19:12)
[2019-02-27 08:00] VITALS: BP 122/78
[2019-02-27] MEDS: NS W/KCL 20 MEQ/L 1,000 ML IV SCH (08:27)
[2019-02-27] MEDS: TACROLIMUS 1MG CAPSULE PO SCH ×2 (08:27→20:36)
[2019-02-27] MEDS: meTOprolol TARTRATE 25 MG (LOPRESSOR) TABLET PO SCH (08:28)
[2019-02-27] MEDS: PANTOPRAZOLE 40 MG (PROTONIX) TAB PO SCH (08:28)
[2019-02-27] MEDS: CELLCEPT 250 MG PO SCH ×2 (08:28→20:35)
[2019-02-27] MEDS: ASPIRIN E.C. 81 MG (ECOTRIN) TAB PO SCH (08:28)
[2019-02-27] MEDS ORDERED: TACROLIMUS 1 MG (PROGRAF) CAP NON-FORMULARY PO SCH (09:00)
[2019-02-27] MEDS ORDERED: NON-FORMULARY MEDICATION 1 EA EA (Lactobacillus Acidophilus (Acidophilus) 1 CAP) PO SCH (09:00)
[2019-02-27] MEDS ORDERED: NON-FORMULARY MEDICATION 1 EA EA (Mycophenolate Mofetil (Cellcept) 500 MG) PO SCH (09:00)
[2019-02-27] MEDS ORDERED: NON-FORMULARY MEDICATION 1 EA EA (Omeprazole 40 MG) PO SCH (09:00)
[2019-02-27 12:00] VITALS: BP 188/86
--- NOTE | 2019-02-27 12:39 | Progress Note ---
Subjective Date Seen by a Provider: Feb 27, 2019 Time Seen by a Provider: 12:34 Subjective/Events-last exam Fwup pneumonia with SIRS, hypertension, S/P pancreatic/renal transplant. Still with cough but no fever/chills and feeling better. Focused Exam Lactate Level 02/25/19 21:40: Lactic Acid Level 0.85 Time of Focused Exam: 2314 Objective Exam Vital Signs Date Time Temp Pulse Resp B/P (MAP) Pulse Ox O2 Delivery O2 Flow Rate FiO2 02/27/19 08:00 36.6 84 20 122/78 (93) 94 Room Air 02/27/19 07:48 93 Nasal Cannula 4.00 02/27/19 04:15 36.8 73 18 159/88 (111) 96 Nasal Cannula 3.00 02/26/19 23:15 37.1 77 20 151/77 (101) 92 Nasal Cannula 3.00 02/26/19 21:36 94 Nasal Cannula 4.00 02/26/19 20:15 92 Nasal Cannula 3.00 02/26/19 20:00 36.6 73 18 145/85 (105) 96 Nasal Cannula 3.00 02/26/19 16:00 37.4 84 16 167/91 (116) 96 Nasal Cannula 3.00 I & O 02/27/19 07:00 Intake Total 2240 ml Balance 2240 ml Capillary Refill : Less Than 3 SecondsLess Than 3 Seconds General Appearance: No Apparent Distress Neck: Supple Respiratory: Lungs Clear Cardiovascular: Regular Rate, Rhythm Gastrointestinal: normal bowel sounds, non tender, soft Extremity: Non Tender, No Calf Tenderness, No Pedal Edema Neurologic/Psychiatric: Alert, Oriented x3 Results Lab Laboratory Tests 02/27/19 06:08: White Blood Count 7.0, Red Blood Count 4.77, Hemoglobin 13.1L, Hematocrit 39L, Mean Corpuscular Volume 82, Mean Corpuscular Hemoglobin 28, Mean Corpuscular Hemoglobin Concent 33, Red Cell Distribution Width 13.6, Platelet Count 140, Mean Platelet Volume 10.4, Neutrophils (%) (Auto) 76H, Lymphocytes (%) (Auto) 8L , Monocytes (%) (Auto) 10, Eosinophils (%) (Auto) 6, Basophils (%) (Auto) 0, Neutrophils # (Auto) 5.3, Lymphocytes # (Auto) 0.6L, Monocytes # (Auto) 0.7, Eosinophils # (Auto) 0.4H, Basophils # (Auto) 0.0 Microbiology 02/25/19 Blood Culture - Preliminary, Resulted No growth 02/25/19 RICARDO Preparation - Final, Complete 02/25/19 Influenza Types A,B Antigen (KENY) - Final, Complete Assessment/Plan Assessment/Plan Assess & Plan/Chief Complaint 1. Pneumonia with SIRS--continue cefepime 2. Hypertension--increase metoprolol dose 3. S/P pancreatic/renal transplant--back on immunosuppressive therapy Clinical Quality Measures Admission Status Admission Dx 1. Right lower lobe pneumonia with SIRS - continue cefepime 2. Hypertension - restart home metoprolol and monitor BP 3. History of pancreatic, renal transplant - resume Cellcept and Prograf now 4. GERD - start pantoprazole DVT/VTE Risk/Contraindication: Risk Factor Score Per Nursin RFS Level Per Nursing on Admit: 4+=Very High VESNA FAUSTIN DO Feb 27, 2019 12:39
[2019-02-27] MEDS ORDERED: meTOprolol TARTRATE 25 MG (LOPRESSOR) TABLET PO NR (13:00)
[2019-02-27 16:28] VITALS: BP 150/71
[2019-02-27 19:35] VITALS: BP 159/77
[2019-02-27] MEDS: meTOprolol TARTRATE 50 MG (LOPRESSOR) TAB PO SCH (20:34)
[2019-02-28 01:01] VITALS: BP 159/83
[2019-02-28] MEDS: CEFEPIME INJECTION 1,000 MG in WATER (STERILE) FOR INJECTION 10 ML IV SCH ×4 (02:23→20:08)
[2019-02-28] MEDS: LACTOBACILLUS ACIDOPHILUS (PROBIOTIC) CAPSULE PO SCH ×2 (06:04→17:22)
[2019-02-28 08:00] VITALS: BP 170/90
[2019-02-28] MEDS: RT-ALBUTEROL/IPRATROPIUM 3 ML (DUONEB) VIAL INH SCH ×2 (08:24→20:26)
[2019-02-28] MEDS: meTOprolol TARTRATE 50 MG (LOPRESSOR) TAB PO SCH ×2 (08:31→20:07)
[2019-02-28] MEDS: PANTOPRAZOLE 40 MG (PROTONIX) TAB PO SCH (08:31)
[2019-02-28] MEDS: TACROLIMUS 1MG CAPSULE PO SCH ×2 (08:31→20:07)
[2019-02-28] MEDS: ASPIRIN E.C. 81 MG (ECOTRIN) TAB PO SCH (08:31)
[2019-02-28] MEDS: CELLCEPT 250 MG PO SCH ×2 (08:31→20:07)
[2019-02-28] MEDS ORDERED: methylPREDNISolone 125 MG (Solu-MEDROL) VIAL IVP NR (13:04)
--- NOTE | 2019-02-28 13:52 | Diagnostic Imaging Report ---
INDICATION: Followup pneumonia. COMPARISON: 02/26/2019. FINDINGS: Frontal and lateral views of the chest demonstrate normal heart size and pulmonary vascularity. The lungs continue to show low inspiratory volumes with bibasilar airspace disease; however, this has slightly improved when compared to 02/26/2019. No large effusion or pneumothorax is seen on either side. The osseous structures show no acute abnormalities. IMPRESSION: Persistent although improved bibasilar infiltrates. Continued followup to resolution is recommended. Dictated by: Dictated on workstation # [id number]
[2019-02-28 16:00] VITALS: BP 192/98
--- NOTE | 2019-02-28 17:33 | Progress Note ---
Subjective Date Seen by a Provider: Feb 28, 2019 Time Seen by a Provider: 12:45 Subjective/Events-last exam Fwup pneumonia with SIRS, hypertension, S/P pancreatic/renal transplant. Oxygen down to 1L. Coughing up more phlegm and feels better. Focused Exam Lactate Level 02/25/19 21:40: Lactic Acid Level 0.85 Time of Focused Exam: 2314 Objective Exam Vital Signs Date Time Temp Pulse Resp B/P (MAP) Pulse Ox O2 Delivery O2 Flow Rate FiO2 02/28/19 16:00 36.8 66 18 192/98 (129) 91 Room Air 02/28/19 08:22 91 Nasal Cannula 1.00 02/28/19 08:00 36.6 76 16 170/90 (116) 94 Nasal Cannula 3.00 02/28/19 08:00 91 Nasal Cannula 1.00 02/28/19 01:01 36.8 73 20 159/83 (108) 95 Nasal Cannula 1.00 02/27/19 20:30 Nasal Cannula 1.00 02/27/19 19:35 36.8 95 20 159/77 (104) 92 Nasal Cannula 1.00 02/27/19 19:12 92 Nasal Cannula 1.00 I & O 02/28/19 07:00 Intake Total 1080 ml Balance 1080 ml Capillary Refill : Less Than 3 SecondsLess Than 3 Seconds General Appearance: No Apparent Distress Respiratory: Decreased Breath Sounds, Rales (right base), Rhonci Cardiovascular: Regular Rate, Rhythm Gastrointestinal: normal bowel sounds, non tender, soft Extremity: Non Tender, No Calf Tenderness Neurologic/Psychiatric: Alert, Oriented x3 Skin: Warm/Dry Results Lab Microbiology 02/25/19 Blood Culture - Preliminary, Resulted No growth 02/25/19 RICARDO Preparation - Final, Complete 02/25/19 Influenza Types A,B Antigen (KENY) - Final, Complete Assessment/Plan Assessment/Plan Assess & Plan/Chief Complaint 1. Pneumonia with SIRS--continue cefepime, repeat CXR 2. Hypertension--continue increased metoprolol dose 3. S/P pancreatic/renal transplant--back on immunosuppressive therapy 4. Reactive Airway Disease--solumedrol now and try to wean oxygen Clinical Quality Measures Admission Status Admission Dx 1. Right lower lobe pneumonia with SIRS - continue cefepime 2. Hypertension - restart home metoprolol and monitor BP 3. History of pancreatic, renal transplant - resume Cellcept and Prograf now 4. GERD - start pantoprazole DVT/VTE Risk/Contraindication: Risk Factor Score Per Nursin RFS Level Per Nursing on Admit: 4+=Very High VESNA FAUSTIN DO Feb 28, 2019 17:33
[2019-02-28] MEDS ORDERED: IPRA3AMP31 INH (17:37)
[2019-02-28] MEDS ORDERED: AMOX-358 PO (17:37)
[2019-02-28 23:24] VITALS: BP 138/75
[2019-03-01] MEDS: CEFEPIME INJECTION 1,000 MG in WATER (STERILE) FOR INJECTION 10 ML IV SCH ×2 (01:53→09:38)
[2019-03-01 03:56] VITALS: BP 162/81
[2019-03-01] MEDS: LACTOBACILLUS ACIDOPHILUS (PROBIOTIC) CAPSULE PO SCH (06:08)
[2019-03-01 08:00] VITALS: BP 129/95
[2019-03-01] MEDS: RT-ALBUTEROL/IPRATROPIUM 3 ML (DUONEB) VIAL INH SCH (08:23)
[2019-03-01] MEDS: ASPIRIN E.C. 81 MG (ECOTRIN) TAB PO SCH (09:39)
[2019-03-01] MEDS: meTOprolol TARTRATE 50 MG (LOPRESSOR) TAB PO SCH (09:39)
[2019-03-01] MEDS: PANTOPRAZOLE 40 MG (PROTONIX) TAB PO SCH (09:39)
[2019-03-01] MEDS: CELLCEPT 250 MG PO SCH (09:40)
[2019-03-01] MEDS: TACROLIMUS 1MG CAPSULE PO SCH (09:40)
[2019-03-01] MEDS ORDERED: cefTRIAXone 1,000 MG/2.86 ml vial (IM ONLY) IM SCH (10:30)
[2019-03-01] MEDS ORDERED: LIDOCAINE 1% INJ 20 ML 20 ML VIAL INJ ONE (10:30)
[2019-03-01] MEDS ORDERED: PRD20T PO (11:55)
[2019-03-01] MEDS ORDERED: IPRA3AMP31 IH (11:55)
--- NOTE | 2019-03-01 12:09 | Discharge Summary ---
Discharge Summary Hospital Course Was the Problem List Reviewed?: Yes Hospital Course Eliane Wang MD Date of Admission: Feb 25, 2019 at 23:10 Admission Diagnosis : Family Physician/Provider: Vesna Faustin DO Date of Discharge: 03/01/19 Discharge Diagnosis: [ ] Hospital Course: This is a 63 year old male admitted with pneumonia. He is immunocompromised due to taking routine cellcept and prograf for his history of pancreatic and renal transplant. He was admitted to the medical floor and placed on cefepime. He was given nebulizer treatments with duoneb and required oxygen up to 4 liters via NC for hypoxia. He also required IV solumedrol for wheezing and rhonchi. By the 2nd hospital day his fevers had resolved and we were able to start to wean his oxygen level. He was off oxygen for 24hrs prior to discharge. A repeat CXR the day prior to discharge showed improving RLL infiltrate. He did have some blood pressure spikes during his hospital stay but he was restarted on his metoprolol with a dosage adjustment and his blood pressures have improved. By the day of discharge he was feeling much better. He had been up ambulating in the halls and denied shortness of air or exacerbation of his cough with activity. He will be discharged home on oral augmentin, prednisone and nebulizer treatments with duoneb. I will see him in my office in 1 week. Labs and Pending Lab Test: Microbiology 02/25/19 Blood Culture - Preliminary, Resulted No growth 02/25/19 RICARDO Preparation - Final, Complete 02/25/19 Influenza Types A,B Antigen (KENY) - Final, Complete Home Meds Active Iprat-Albut 0.5-3(2.5) mg/3 ml (Ipratropium/Albuterol Sulfate) 3 Ml Ampul.neb 3 Ml IH Q6H PRN Prednisone 20 Mg Tab 20 Mg PO BID Take 3 tabs(60mg)daily, decrease by 1/2 tab(10mg)daily. Augmentin 875-125 Tablet (Amoxicillin/Potassium Clav) 1 Each Tablet 1 Each PO BID Iprat-Albut 0.5-3(2.5) mg/3 ml (Ipratropium/Albuterol Sulfate) 3 Ml Ampul.neb 3 Ml INH RTQID Reported Multivitamins (Multivitamin) 1 Each Tablet 1 Tab PO DAILY Cellcept (Mycophenolate Mofetil) 250 Mg Capsule 250 Mg PO HS Tacrolimus 1 Mg Capsule 1 Mg PO HS Aspirin EC (Aspirin) 81 Mg Tablet.dr 81 Mg PO DAILY Cellcept (Mycophenolate Mofetil) 250 Mg Capsule 500 Mg PO DAILY TAKES 2 (250MG) CAPSULES Acidophilus (Lactobacillus Acidophilus) 1 Each Capsule 1 Cap PO DAILY Omeprazole 40 Mg Capsule.dr 40 Mg PO DAILY Metoprolol Tartrate 25 Mg Tablet 25 Mg PO HS Tacrolimus 1 Mg Capsule 2 Mg PO DAILY TAKES 2 (1MG) CAPSULES Assessment/Pt Instructions Fwup 1 week Discharge Planning: <30 minutes discharge planning Discharge Instructions Discharge Diet: Cardiac Diet Activity as Tolerated: Yes Pneumonia Vaccine Order Indica: Yes Discharge Physical Examination Vital Signs Vital Signs Date Time Temp Pulse Resp B/P (MAP) Pulse Ox O2 Delivery O2 Flow Rate FiO2 03/01/19 08:23 91 Room Air 03/01/19 08:00 36.9 80 18 129/95 (106) 3.00 General Appearance: No Apparent Distress Respiratory: Decreased Breath Sounds Cardiovascular: Regular Rate, Rhythm Gastrointestinal: Normal Bowel Sounds, Non Tender, Soft Extremity: Non Tender, No Calf Tenderness, No Pedal Edema Skin: Warm/Dry Neurologic/Psychiatric: Alert, Oriented x3 Allergies: Coded Allergies: No Known Drug Allergies (Unverified , 09/17/05) Discharge Summary Date of Admission Feb 25, 2019 at 23:10 Date of Discharge Discharge Date: Mar 01, 2019 Discharge Time: 12:01 Discharge Diagnosis 1. Acute Community Acquired Pneumonia with SIRS--improved 2. Acute Hypoxia due to #1--Resolved 3. Reactive Airway Disease--improved 4. Hypertension--stable 5. History of Pancreatic/Renal Transplant--stable 6. GERD--stable Clinical Quality Measures DVT/VTE Risk/Contraindication: Risk Factor Score Per Nursin RFS Level Per Nursing on Admit: 4+=Very High VESNA FAUSTIN DO Mar 01, 2019 12:09
--- NOTE | 2019-03-01 13:20 | NUR ---
RX AND INST AND VERBALIZED UNDERSTANDING. HOME MEDS RET'D TO PT. DC'D PER WC WITH .
== END 2019-03-01 13:20 | disposition home or self-care (01) | DRG 194 ==
LOC: EDUNIT# 21:03 → ER 21:06 → 4TH 23:10 → ER 02-26 00:20
PROVIDERS: ADMIT Family Medicine; ATTEND Family Medicine
DX: J18.1 Lobar pneumonia, unspecified organism (principal); Z94.0 Kidney transplant status; Z94.83 Pancreas transplant status; I42.9 Cardiomyopathy, unspecified; J45.20 Mild intermittent asthma, uncomplicated; R53.81 Other malaise; I11.0 Hypertensive heart disease with heart failure; I50.9 Heart failure, unspecified; E11.9 Type 2 diabetes mellitus without complications; H40.9 Unspecified glaucoma; Z87.891 Personal history of nicotine dependence; K21.9 Gastro-esophageal reflux disease without esophagitis
CPT/HCPCS: 36415; 71046; 80048; 80053; 81000; 83605; 85007; 85025; 85027; 85610; 85730; 87040; 87220; 87804; 94640; 94664; 94760; 96361; 96365

== ENCOUNTER → 2019-03-08 | Outpatient (CLI) | payer OTHER ==
[~2019-03-08] MED LIST changes: +AMOX-358 PO; +ASPI-983 PO; +IPRA3AMP31 IH; +IPRA3AMP31 INH; +MULT1TAB69 PO; +NF-MYC250C PO; +PRD20T PO
--- NOTE | 2019-03-08 15:39 | Diagnostic Imaging Report ---
INDICATION: Pneumonia, follow-up. TIME OF EXAM: 3:20 p.m. COMPARISON: Correlation is made with prior chest from 02/28/2019. FINDINGS: The heart size is normal. There is overall improved appearance to the chest since prior exam. Clearing of infiltrates in the right base is noted. There may be very minimal residual infiltrate or atelectasis in the left base; however, this again is improved. No effusion is identified. There is no pneumothorax. IMPRESSION: Improved aeration of both lung bases when compared with examination from 02/28/2019. Dictated by: Dictated on workstation # [id number]
== END ==
LOC: RAD 15:07
PROVIDERS: ATTEND Family Medicine
DX: J18.9 Pneumonia, unspecified organism (principal)
CPT/HCPCS: 71046

== ENCOUNTER 2019-04-05 11:00 | Outpatient (CLI) | payer OTHER ==
[~2019-04-05] VITALS: Ht 175 cm; Wt 77.2 kg
== END 2019-04-05 11:35 | disposition home or self-care (01) ==
LOC: PREOP 11:00
PROVIDERS: ATTEND Surgery
DX: Z01.818 Encounter for other preprocedural examination (principal)

== ENCOUNTER 2019-05-31 04:07 | Emergency (ER) | payer OTHER ==
[~2019-05-31] VITALS: Ht 177 cm; Wt 77.2 kg
[2019-05-31] MEDS ORDERED: NS IV 500 ML 500 ML IV ONE (05:06)
[2019-05-31] MEDS ORDERED: fentaNYL INJECTION 100 MCG/2 ML AMP IVP ONE (05:15)
--- NOTE | 2019-05-31 05:16 | ED Headache ---
General Stated Complaint: SEVERE HEADACHE Source: patient Exam Limitations: no limitations (MARILU ROBLES) History of Present Illness Date Seen by Provider: May 31, 2019 Time Seen by Provider: 04:53 Initial Comments Patient presents to ER with his spouse and chief complaint that he awoke about 3:30 this morning with a occipital headache in his upper neck and up to the top of his head. He rates it as an 8 out of 10. He has not taken anything for it. Last time he had a hydrocodone was at 1830. He has 3 days out from spinal fusion surgery at [facility]. In the discharge paperwork they were warned if he experienced headache he was to present to the ER. He has not had any other symptoms such as fever nausea vomiting shortness of breath cough chills diarrhea constipation. He is on CellCept and Prograf for pancreas and kidney transplant secondary to long-standing diabetes. He does not use insulin now. He cannot tolerate NSAIDs secondary to his antirejection medicines. He has not resumed his aspirin since before surgery. (MARILU ROBLES) Allergies and Home Medications Allergies Coded Allergies: No Known Drug Allergies (Unverified , 04/05/19) Home Medications Aspirin 81 Mg Tablet.dr, 81 MG PO DAILY, (Reported) Lactobacillus Acidophilus 1 Each Capsule, 1 CAP PO DAILY, (Reported) Metoprolol Tartrate 25 Mg Tablet, 25 MG PO HS, (Reported) Multivitamin 1 Each Tablet, 1 TAB PO DAILY, (Reported) Mycophenolate Mofetil 250 Mg Capsule, 500 MG PO DAILY, (Reported) TAKES 2 (250MG) CAPSULES Mycophenolate Mofetil 250 Mg Capsule, 250 MG PO HS, (Reported) Omeprazole 40 Mg Capsule.dr, 40 MG PO DAILY, (Reported) Tacrolimus 1 Mg Capsule, 2 MG PO DAILY, (Reported) TAKES 2 (1MG) CAPSULES Tacrolimus 1 Mg Capsule, 1 MG PO HS, (Reported) Patient Home Medication List Home Medication List Reviewed: Yes (MARILU ROBLES) Review of Systems Review of Systems Constitutional: No chills, No diaphoresis Eyes: Denies Blindness, Denies Pain Ears, Nose, Mouth, Throat: denies ear pain, denies ear discharge Respiratory: No cough, No short of breath Cardiovascular: No chest pain, No palpitations Gastrointestinal: No abdominal pain, No constipation, No diarrhea, No nausea Genitourinary: No discharge, No dysuria Musculoskeletal: see HPI; No back pain; neck pain Skin: No pruritus, No rash Psychiatric/Neurological: Headache; Denies Numbness, Denies Paresthesia (MARILU ROBLES) All Other Systems Reviewed Negative Unless Noted: Yes (MARILU ROBLES) Past Ausvcem-Sjowtk-Ucspxw Hx Patient Social History Alcohol Use: Denies Use Recreational Drug Use: No Smoking Status: Former Smoker Type Used: Smokeless Tobacco Former Smoker, Quit: Jan 28, 1979 2nd Hand Smoke Exposure: Yes Recent Foreign Travel: No Contact w/Someone Who Travel: No Recent Hopitalizations: Yes (FEBRUARY 2019-PNEUMONIA) (MARILU ROBLES) Immunizations Up To Date Date of Pneumonia Vaccine: Feb 27, 2016 Date of Influenza Vaccine: Mar 05, 2019 (MARILU ROBLES) Seasonal Allergies Seasonal Allergies: Yes (MILD) (MARILU ROBLES) Past Medical History Surgeries: Yes (CATARACTS) Gallbladder, Kidney Transplant, Orthopedic, Pancreatic, Penile Implant Respiratory: Yes (NO PROBLEMS SINCE 1982) Asthma Cardiac: Yes Hypertension Neurological: No Reproductive Disorders: No Sexually Transmitted Disease: No Genitourinary: Yes (Pancreas & kindey transplant ) Renal Failure Gastrointestinal: Yes Gastroesophageal Reflux Musculoskeletal: Yes Fractures Endocrine: No Diabetes, Non-Insulin dep HEENT: Yes (READING GLASSES, DENTURES) Glaucoma Cancer: No Psychosocial: No Integumentary: No Blood Disorders: No Adverse Reaction/Blood Tranf: No (N/A) (MARILU ROBLES) Family Medical History No Pertinent Family Hx (MARILU ROBLES) Physical Exam Vital Signs Vital Signs - First Documented 05/31/19 04:37 Temp 37.1 Pulse 74 Resp 18 B/P (MAP) 168/85 (112) Pulse Ox 93 O2 Delivery Room Air (NATHAN HENRY MD) Vital Signs Capillary Refill : (MARILU ROBLES) Height, Weight, BMI Height: 5'9" Weight: 180lbs. oz. 81.776431wk; 25.20 BMI Method:Stated General Appearance: WD/WN, no apparent distress HEENT: PERRL/EOMI, normal ENT inspection, TMs normal, pharynx normal Neck: full range of motion, supple, normal inspection Cardiovascular: normal peripheral pulses, regular rate, rhythm Respiratory: lungs clear, normal breath sounds, no respiratory distress, no accessory muscle use Gastrointestinal: normal bowel sounds, non tender, soft Extremities: normal range of motion, non-tender, normal inspection Psychiatric: alert, oriented x 3 Crainal Nerves: normal hearing, normal speech, PERRL Coordination/Gait: normal gait Motor/Sensory: no motor deficit, no sensory deficit Skin: normal color, warm/dry (MARGARET,MARILU J) Progress/Results/Core Measures Results/Orders Lab Results Laboratory Tests Test 05/31/19 05:15 Range/Units White Blood Count 11.6 H 4.3-11.0 10^3/uL Red Blood Count 5.18 4.35-5.85 10^6/uL Hemoglobin 14.4 13.3-17.7 G/DL Hematocrit 41 40-54 % Mean Corpuscular Volume 80 80-99 FL Mean Corpuscular Hemoglobin 28 25-34 PG Mean Corpuscular Hemoglobin Concent 35 32-36 G/DL Red Cell Distribution Width 14.2 10.0-14.5 % Platelet Count 161 130-400 10^3/uL Mean Platelet Volume 10.8 H 7.4-10.4 FL Neutrophils (%) (Auto) 79 H 42-75 % Lymphocytes (%) (Auto) 6 L 12-44 % Monocytes (%) (Auto) 12 0-12 % Eosinophils (%) (Auto) 3 0-10 % Basophils (%) (Auto) 0 0-10 % Neutrophils # (Auto) 9.2 H 1.8-7.8 X 10^3 Lymphocytes # (Auto) 0.7 L 1.0-4.0 X 10^3 Monocytes # (Auto) 1.3 H 0.0-1.0 X 10^3 Eosinophils # (Auto) 0.3 0.0-0.3 10^3/uL Basophils # (Auto) 0.0 0.0-0.1 10^3/uL Neutrophils % (Manual) 81 % Lymphocytes % (Manual) 4 % Monocytes % (Manual) 10 % Eosinophils % (Manual) 0 % Basophils % (Manual) 0 % Band Neutrophils 1 % Reactive Lymphocytes 4 % Anisocytosis SLIGHT Erythrocyte Sedimentation Rate 10 0-30 MM/HR Sodium Level 135 135-145 MMOL/L Potassium Level 3.8 3.6-5.0 MMOL/L Chloride Level 102 98-107 MMOL/L Carbon Dioxide Level 20 L 21-32 MMOL/L Anion Gap 13 5-14 MMOL/L Blood Urea Nitrogen 14 7-18 MG/DL Creatinine 0.74 0.60-1.30 MG/DL Estimat Glomerular Filtration Rate > 60 BUN/Creatinine Ratio 19 Glucose Level 121 H 70-105 MG/DL Calcium Level 8.7 8.5-10.1 MG/DL Corrected Calcium 9.0 8.5-10.1 MG/DL Total Bilirubin 1.3 H 0.1-1.0 MG/DL Aspartate Amino Transf (AST/SGOT) 15 5-34 U/L Alanine Aminotransferase (ALT/SGPT) 10 0-55 U/L Alkaline Phosphatase 90 40-136 U/L C-Reactive Protein High Sensitivity 13.78 H 0.00-0.50 MG/DL Total Protein 6.4 6.4-8.2 GM/DL Albumin 3.6 3.2-4.5 GM/DL (NATHAN HENRY MD) My Orders Orders - NATHAN HENRY MD Erythrocyte Sedimentation Rate (05/31/19 06:16) Hs C Reactive Protein (05/31/19 06:16) (NATHAN HENRY MD) Medications Given in ED Current Medications Medications Dose Ordered Sig/Otilio Route Start Time Stop Time Status Last Admin Dose Admin Fentanyl Citrate 50 mcg ONCE ONCE IVP 05/31/19 05:15 05/31/19 05:16 DC 05/31/19 05:18 50 MCG Fentanyl Citrate 75 mcg ONCE ONCE IM 05/31/19 05:45 05/31/19 05:46 DC 05/31/19 06:03 75 MCG Sodium Chloride 500 ml @ 0 mls/hr Q0M ONCE IV 05/31/19 05:06 05/31/19 05:10 DC 05/31/19 05:19 0 MLS/HR (NATHAN HENRY MD) Vital Signs/I&O 05/31/19 04:37 Temp 37.1 Pulse 74 Resp 18 B/P (MAP) 168/85 (112) Pulse Ox 93 O2 Delivery Room Air (NATHAN HENRY MD) Progress Progress Note : Time: 05:22 Progress Note 50 g fentanyl IV for pain. CT of the head and C-spine without IV contrast. Bas ic labs looking for evidence of disseminated infection, electrolyte derangements etc. (MARILU ROBLES) Progress Note : Time: 07:39 Progress Note The patient's CT of the head and neck noncontrast film demonstrate evidence of acute pathology on my interpretation. I'm awaiting the radiologist's report. The patient's laboratory evaluation was essentially unremarkable with normal renal function and no remarkable leukocytosis. However the patient's CRP was significantly elevated. Consultation Was Undertaken with Transplant Service at [facility]. I Spoke with Dr. Estevan Randle who is kind enough to accept the patient in transfer to [facility]. (NATHAN HENRY MD) Diagnostic Imaging Diagonstic Imaging: CT Plain Films/CT/US/NM/MRI: c-spine, head Reviewed: Reviewed by Me (MARILU ROBLES) Departure Impression Primary Impression: Headache Qualified Codes: R51 - Headache Additional Impressions: Cervical vertebral fusion Immunocompromised Disposition: 02 XFER SHT-TRM HOSP Condition: Improved Transfer Transfer Reason: Exceeds level of care Time Spoke to Accepting Phy: 07:[address] Randle at [facility] Transfer Time: 07:45 Transfer Facility: [facility] Method of Transfer: EMS (NATHAN HENRY MD) Departure-Patient Inst. Referrals: VESNA FAUSTIN DO (PCP/Family) Primary Care Physician MARILU ROBLES May 31, 2019 05:16 NATHAN HENRY MD May 31, 2019 07:38
[2019-05-31 05:26] LABS: BASOPHILS % (AUTO) 0 % (0-10); EOSINOPHILS # (AUTO) 0.3 10^3/uL (0.0-0.3); EOSINOPHILS % (AUTO) 3 % (0-10); HEMATOCRIT 41 % (40-54); HEMOGLOBIN 14.4 G/DL (13.3-17.7); LYMPHOCYTES # (AUTO) 0.7 X 10^3 (1.0-4.0); LYMPHOCYTES % (AUTO) 6 % (12-44); MEAN CORPUSCULAR HEMOGLOBIN 28 PG (25-34); MEAN CORPUSCULAR HGB CONC 35 G/DL (32-36); MEAN CORPUSCULAR VOLUME 80 FL (80-99); MEAN PLATELET VOLUME 10.8 FL (7.4-10.4); MONOCYTES # (AUTO) 1.3 X 10^3 (0.0-1.0); MONOCYTES % (AUTO) 12 % (0-12); NEUTROPHILS # (AUTO) 9.2 X 10^3 (1.8-7.8); NEUTROPHILS % (AUTO) 79 % (42-75); PLATELET COUNT 161 10^3/uL (130-400); RED CELL DISTRIBUTION WIDTH 14.2 % (10.0-14.5); WHITE BLOOD COUNT 11.6 10^3/uL (4.3-11.0)
[2019-05-31 05:39] LABS: BAND NEUTROPHILS 1 %; BASOPHILS % (MANUAL) 0 %; EOSINOPHILS % (MANUAL) 0 %; LYMPHOCYTES % (MANUAL) 4 %; MONOCYTES % (MANUAL) 10 %; NEUTROPHILS % (MANUAL) 81 %
[2019-05-31 05:40] LABS: ANISOCYTOSIS SLIGHT; REACTIVE LYMPHOCYTES 4 %
[2019-05-31 05:44] LABS: ALANINE AMINOTRANSFERASE 10 U/L (0-55); ALBUMIN 3.6 GM/DL (3.2-4.5); ALKALINE PHOSPHATASE 90 U/L (40-136); BILIRUBIN,TOTAL 1.3 MG/DL (0.1-1.0); BUN/CREATININE RATIO 19; CALCIUM 8.7 MG/DL (8.5-10.1); CARBON DIOXIDE 20 MMOL/L (21-32); CHLORIDE 102 MMOL/L (98-107); CREATININE SERUM 0.74 MG/DL (0.60-1.30); GFR ESTIMATED > 60; GLUCOSE 121 MG/DL (70-105); POTASSIUM 3.8 MMOL/L (3.6-5.0); SODIUM 135 MMOL/L (135-145); TOTAL PROTEIN 6.4 GM/DL (6.4-8.2)
[2019-05-31] MEDS ORDERED: fentaNYL INJECTION 100 MCG/2 ML AMP IM ONE (05:45)
--- NOTE | 2019-05-31 07:37 | Diagnostic Imaging Report ---
PROCEDURE: CT head and CT cervical spine without contrast. TECHNIQUE: Multiple contiguous axial images were obtained through the brain and cervical spine without the use of intravenous contrast. Sagittal and coronal reformations through the cervical spine were then performed. Auto Exposure Controls were utilized during the CT exam to meet ALARA standards for radiation dose reduction. INDICATION: Headache and neck pain. Patient with history of cervical fusion. COMPARISON: CT head performed on 12/17/2015. MRI cervical spine performed on 09/09/2016. FINDINGS - CT BRAIN: BRAIN: No parenchymal hemorrhage, midline shift or mass effect. Huerta-white matter differentiation is intact. No acute infarct. No significant white matter changes. Mild prominence of the ventricles and sulci consistent with cortical and cerebellar parenchymal volume loss. EXTRA-AXIAL SPACES: No subdural or epidural collections. ORBITS AND PARANASAL SINUSES: Visualized orbits and globes are intact. Visualized paranasal sinuses and mastoid air cells are clear. CALVARIUM AND SOFT TISSUES: The calvarium is intact. No fractures or suspicious bony lesions. The extracranial soft tissues are unremarkable. FINDINGS - CT CERVICAL SPINE: SPINE: No fracture or acute osseous abnormality. The patient is status post anterior cervical fusion at the C3-C5 levels, with interbody fusion devices noted at these levels. There is incomplete bony fusion noted at the fused levels. There is no evidence of hardware abnormality or loosening. There is normal cervical lordosis. No subluxation. Mild degenerative changes are noted, with endplate osteophytes and uncovertebral spurring noted at multiple levels. Intervertebral disc spaces are well-preserved. Mild multilevel facet arthropathy. No locked or perched facet. SOFT TISSUES AND LUNG APICES: Soft tissues unremarkable. Clear lung apices. IMPRESSION: - CT BRAIN: No acute intracranial pathology. No significant change from prior. IMPRESSION: - CT CERVICAL SPINE: Status post anterior cervical fusion at the C3-C5 levels. There is no evidence of acute fracture or subluxation. There is no acute abnormality involving the fusion hardware. Dictated by: Dictated on workstation # [id number]
[2019-05-31 09:20] VITALS: BP 162/100
== END 2019-05-31 09:20 | disposition short-term general hospital (02) ==
LOC: EDUNIT# 04:07 → ER 04:10
DX: R51 Headache (principal); M43.22 Fusion of spine, cervical region; D84.9 Immunodeficiency, unspecified; E11.9 Type 2 diabetes mellitus without complications; J45.909 Unspecified asthma, uncomplicated; I10 Essential (primary) hypertension; K21.9 Gastro-esophageal reflux disease without esophagitis; Z79.82 Long term (current) use of aspirin; Z87.891 Personal history of nicotine dependence; Z77.22 Contact with and (suspected) exposure to environmental tobacco smoke (acute) (chronic); Z94.0 Kidney transplant status
CPT/HCPCS: 36415; 70450; 72125; 80053; 85007; 85027; 85652; 86141; 96361; 96372; 96374

== ENCOUNTER → 2019-12-20 | Outpatient (CLI) | payer OTHER ==
[~2019-12-20] MED LIST changes: +MULT-567 PO; -MULT1TAB69 PO; +OMEP40CA27 PO; -OMEP40CA36 PO
--- NOTE | 2019-12-20 16:57 | Diagnostic Imaging Report ---
INDICATION: Right ankle pain. COMPARISON: None available. TECHNIQUE: Three views of right ankle were obtained. FINDINGS: There are chronic-appearing deformity of the talar neck with dorsal osteophyte or heterotopic bone formation. Advanced degenerative changes are present in the posterior subtalar joint and mild degenerative changes within the tibiotalar joint. Allowing for these significant deformities of the talus, no appreciable fracture is seen. Small plantar calcaneal spur. Soft tissue swelling is present. IMPRESSION: 1. Chronic-appearing deformity throughout the talus limits assessment for fracture of the talus. There is no additional fracture about the ankle. 2. Moderate soft tissue swelling. 3. If there is strong clinical suspicion for fracture of the talus, CT of the right ankle without contrast would be advised for more sensitive assessment. Dictated by: Dictated on workstation # [id number]
== END ==
LOC: RAD 16:32
PROVIDERS: ATTEND Nurse Practitioner Family
DX: M25.471 Effusion, right ankle (principal); S92.111A Displaced fracture of neck of right talus, initial encounter for closed fracture
CPT/HCPCS: 73610

== ENCOUNTER → 2019-12-21 | Outpatient (CLI) | payer OTHER ==
--- NOTE | 2019-12-21 09:07 | Diagnostic Imaging Report ---
EXAMINATION: US Right Lower Extremity Venous Duplex. TECHNIQUE: Multiple real-time grayscale images were obtained over the right lower extremity in various projections. Additional spectral analysis and color Doppler duplex images were also obtained. HISTORY: Pain, swelling and erythema in the right lower extremity. COMPARISON: None available. FINDINGS: The right common femoral vein, deep femoral vein, superficial femoral vein and popliteal vein are patent with normal swartz scale and doppler appearance. There is normal respiratory variation and augmentation. IMPRESSION: 1. No DVT of the right lower extremity. Dictated by: Dictated on workstation # [id number]
== END ==
LOC: RAD 07:14
PROVIDERS: ATTEND Nurse Practitioner Family
DX: M79.89 Other specified soft tissue disorders (principal); L53.8 Other specified erythematous conditions

== ENCOUNTER → 2020-01-03 | Outpatient (CLI) | payer OTHER ==
--- NOTE | 2020-01-03 16:57 | Diagnostic Imaging Report ---
PROCEDURE: CT right lower extremity without contrast. TECHNIQUE: Axially acquired CT was obtained through the right lower extremity without intravenous contrast. Coronal and sagittal reformations were also performed. Auto Exposure Controls were utilized during the CT exam to meet ALARA standards for radiation dose reduction. INDICATION: Right ankle injury two weeks ago. Medial right ankle pain. COMPARISON: Radiographs from 12/20/2019. FINDINGS: There is a healing nondisplaced intra-articular fracture at the base of the 1st metatarsal with surrounding periosteal reaction and bony callus formation. There is subcortical lucency at the articular surfaces of the talonavicular joint with severe flattening of the talar head, consistent with osteonecrosis. There is also subcortical lucency and collapse of the articular surface of the lateral talar dome, consistent with osteonecrosis. There are additional severe degenerative changes at the tibiotalar joint as well as at the talofibular interface and in the subtalar joint. Advanced degenerative changes are seen throughout the midfoot with large joint body seen superior to the talonavicular joint. There is a small plantar calcaneal enthesophyte. There is moderate superficial soft tissue edema about the right ankle and imaged portions of the right foot. There is generalized muscular atrophy and edema, which may be due to neuropathic changes. There is calcific atherosclerosis. There are moderate effusions of the tibiotalar and subtalar joints. The tendons and ligaments are not well evaluated by CT; however, there does appear to be tendinosis and at least partial tearing of the peroneus longus tendon. IMPRESSION: 1. Nondisplaced healing fracture at the base of the right 1st metatarsal. 2. 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 There is articular surface collapse in the talus. 3. Tibiotalar and subtalar joint effusions with numerous osseous fragments, particularly superior to the talonavicular joint. 4. Tendinosis and partial tearing of the peroneus longus tendon. Dictated by: Dictated on workstation # [id number]
== END ==
LOC: RAD 15:26
PROVIDERS: ATTEND Family Medicine
DX: S92.314A Nondisplaced fracture of first metatarsal bone, right foot, initial encounter for closed fracture (principal); M19.071 Primary osteoarthritis, right ankle and foot; M25.471 Effusion, right ankle; S93.491A Sprain of other ligament of right ankle, initial encounter; S96.811A Strain of other specified muscles and tendons at ankle and foot level, right foot, initial encounter; X58.XXXA Exposure to other specified factors, initial encounter
CPT/HCPCS: 73700

== ENCOUNTER 2020-09-11 11:33 | Emergency (ER) | payer OTHER ==
[~2020-09-11] VITALS: Ht 175 cm; Wt 81.6 kg
[~2020-09-11 11:33] MED LIST changes: +ASPI-1238 PO; -ASPI-983 PO
--- NOTE | 2020-09-11 12:17 | ED Cough/URI ---
General Chief Complaint: Cough/Cold/Flu Symptoms Stated Complaint: COUGH / CONGESTION / HEADACHE / WARM Source: patient Exam Limitations: no limitations History of Present Illness Date Seen by Provider: Sep 11, 2020 Time Seen by Provider: 12:00 Initial Comments To ER with cough, nasal congestion/rhinorrhea, headache and feeling warm. The cough began 3 days ago after he replaced a sawblade on a saw at work. He then blew out the sawdust and after inhaling the sawdust he developed nasal congestion and a cough. He had pneumonia at this time last year. He is on immunosuppressants (cellcept and tacrolimus) following a kidney transplant in 2001. He received his second Covid vaccination yesterday and today he feels some general malaise. No measured fevers. He is eating and drinking well. He is not short of breath Timing/Duration: constant Severity/Quality: moderate Associated Symptoms: cough, nasal congestion Allergies and Home Medications Allergies Coded Allergies: No Known Drug Allergies (Unverified , 04/05/19) Home Medications Aspirin 81 Mg Tablet.dr, 81 MG PO DAILY, (Reported) Lactobacillus Acidophilus 1 Each Capsule, 1 CAP PO DAILY, (Reported) Metoprolol Tartrate 25 Mg Tablet, 25 MG PO HS, (Reported) Multivitamin 1 Each Tablet, 1 TAB PO DAILY, (Reported) Mycophenolate Mofetil 250 Mg Capsule, 500 MG PO DAILY, (Reported) TAKES 2 (250MG) CAPSULES Mycophenolate Mofetil 250 Mg Capsule, 250 MG PO HS, (Reported) Omeprazole 40 Mg Capsule.dr, 40 MG PO DAILY, (Reported) Tacrolimus 1 Mg Capsule, 2 MG PO DAILY, (Reported) TAKES 2 (1MG) CAPSULES Tacrolimus 1 Mg Capsule, 1 MG PO HS, (Reported) Patient Home Medication List Home Medication List Reviewed: Yes Review of Systems Review of Systems Constitutional: see HPI; No chills, No fever; malaise EENTM: see HPI, nose congestion Respiratory: see HPI, cough Cardiovascular: no symptoms reported Genitourinary: no symptoms reported Musculoskeletal: no symptoms reported Skin: no symptoms reported Psychiatric/Neurological: No Symptoms Reported Hematologic/Lymphatic: No Symptoms Reported Immunological/Allergic: no symptoms reported Past Jrrvomq-Cwdlbb-Ncpdyn Hx Patient Social History Type Used: Smokeless Tobacco Former Smoker, Quit: Jan 28, 1979 2nd Hand Smoke Exposure: Yes Recent Hopitalizations: Yes (FEBRUARY 2019-PNEUMONIA) Immunizations Up To Date Tetanus Booster (TDap): Less than 5yrs PED Vaccines UTD: No Date of Pneumonia Vaccine: Feb 27, 2016 Date of Influenza Vaccine: Mar 05, 2019 Seasonal Allergies Seasonal Allergies: Yes (MILD) Past Medical History Surgeries: Yes (CATARACTS) Gallbladder, Kidney Transplant, Orthopedic, Pancreatic, Penile Implant Respiratory: Yes (NO PROBLEMS SINCE 1982) Asthma Cardiac: Yes Hypertension Neurological: No Reproductive Disorders: No Sexually Transmitted Disease: No Genitourinary: Yes (Pancreas & kindey transplant ) Renal Failure Gastrointestinal: Yes Gastroesophageal Reflux Musculoskeletal: Yes Fractures Endocrine: No Diabetes, Non-Insulin dep HEENT: Yes (READING GLASSES, DENTURES) Glaucoma Cancer: No Psychosocial: No Integumentary: No Blood Disorders: No Adverse Reaction/Blood Tranf: No (N/A) Family Medical History No Pertinent Family Hx Physical Exam Vital Signs - First Documented 09/11/20 12:16 Temp 35.0 Pulse 76 Resp 12 B/P (MAP) 157/88 (111) Pulse Ox 94 O2 Delivery Room Air Capillary Refill : Height: 5'9" Weight: 180lbs. oz. 81.059324ju; 24.00 BMI Method:Stated General Appearance: WD/WN, no apparent distress Eyes: Bilateral Eye Normal Inspection, Bilateral Eye PERRL, Bilateral Eye EOMI HEENT: PERRL/EOMI, normal ENT inspection Neck: non-tender, full range of motion Respiratory: normal breath sounds, no respiratory distress, no accessory muscle use, other (Oxygen saturation 94% room air) Cardiovascular: regular rate, rhythm, no murmur Gastrointestinal: normal bowel sounds, non tender, soft Neurologic/Psychiatric: alert, normal mood/affect, oriented x 3 Skin: normal color, warm/dry Progress/Results/Core Measures Suspected Sepsis SIRS Temperature: Pulse: Respiratory Rate: Laboratory Tests 09/11/20 12:08: White Blood Count 6.5 Blood Pressure / Mean: Laboratory Tests 09/11/20 12:08: Creatinine 1.00, Platelet Count 147 Results/Orders Lab Results Laboratory Tests Test 09/11/20 12:08 Range/Units White Blood Count 6.5 4.3-11.0 10^3/uL Red Blood Count 5.29 4.30-5.52 10^6/uL Hemoglobin 14.9 13.3-17.7 g/dL Hematocrit 45 40-54 % Mean Corpuscular Volume 85 80-99 fL Mean Corpuscular Hemoglobin 28 25-34 pg Mean Corpuscular Hemoglobin Concent 33 32-36 g/dL Red Cell Distribution Width 13.2 10.0-14.5 % Platelet Count 147 130-400 10^3/uL Mean Platelet Volume 10.6 9.0-12.2 fL Immature Granulocyte % (Auto) 1 % Neutrophils (%) (Auto) 74 42-75 % Lymphocytes (%) (Auto) 10 L 12-44 % Monocytes (%) (Auto) 15 H 0-12 % Eosinophils (%) (Auto) 0 0-10 % Basophils (%) (Auto) 1 0-10 % Neutrophils # (Auto) 4.8 1.8-7.8 10^3/uL Lymphocytes # (Auto) 0.7 L 1.0-4.0 10^3/uL Monocytes # (Auto) 1.0 0.0-1.0 10^3/uL Eosinophils # (Auto) 0.0 0.0-0.3 10^3/uL Basophils # (Auto) 0.0 0.0-0.1 10^3/uL Immature Granulocyte # (Auto) 0.0 0.0-0.1 10^3/uL Sodium Level 134 L 135-145 MMOL/L Potassium Level 4.3 3.6-5.0 MMOL/L Chloride Level 101 98-107 MMOL/L Carbon Dioxide Level 22 21-32 MMOL/L Anion Gap 11 5-14 MMOL/L Blood Urea Nitrogen 13 7-18 MG/DL Creatinine 1.00 0.60-1.30 MG/DL Estimat Glomerular Filtration Rate > 60 BUN/Creatinine Ratio 13 Glucose Level 102 70-105 MG/DL Calcium Level 8.3 L 8.5-10.1 MG/DL Coronavirus 2019 (GIANFRANCO) Not Detected Not Detecte Micro Results Microbiology 09/11/20 Influenza Types A,B Antigen (KENY) - Final, Complete My Orders Orders - SUMAN BILL SECURITY TESTER Cbc With Automated Diff (09/11/20 12:15) Basic Metabolic Panel (09/11/20 12:15) Chest 1 View, Ap/Pa Only (09/11/20 12:15) Influenza A And B Antigens (09/11/20 12:15) Covid 19 Inhouse Test (09/11/20 12:15) Vital Signs/I&O 09/11/20 09/11/20 12:16 12:16 Temp 35.0 Pulse 76 Resp 12 B/P (MAP) 157/88 (111) Pulse Ox 94 O2 Delivery Room Air Capillary Refill : Departure Communication (Admissions) Given his immunosuppression I will put him on some antibiotics. Impression Primary Impression: Sinus congestion Disposition: HOME, SELF-CARE Condition: Stable Departure-Patient Inst. Decision time for Depature: 13:03 Referrals: VESNA FAUSTIN DO (PCP/Family) Primary Care Physician Patient Instructions: Sinusitis in Adults Add. Discharge Instructions: 1. Take an [id number] allergy medication like cetirizine (Zyrtec) as directed. Antibiotics as directed. All discharge instructions reviewed with patient and/or family. Voiced understanding. Scripts Cefuroxime Axetil (Cefuroxime) 250 Mg Tablet 250 MG PO BID, #10 TAB Prov: SUMAN BILL APRN 09/11/20 SUMAN BILL APRN Sep 11, 2020 12:17
[2020-09-11 12:23] LABS: BASOPHILS % (AUTO) 1 % (0-10); EOSINOPHILS % (AUTO) 0 % (0-10); HEMATOCRIT 45 % (40-54); HEMOGLOBIN 14.9 g/dL (13.3-17.7); LYMPHOCYTES # (AUTO) 0.7 10^3/uL (1.0-4.0); LYMPHOCYTES % (AUTO) 10 % (12-44); MEAN CORPUSCULAR HEMOGLOBIN 28 pg (25-34); MEAN CORPUSCULAR HGB CONC 33 g/dL (32-36); MEAN CORPUSCULAR VOLUME 85 fL (80-99); MEAN PLATELET VOLUME 10.6 fL (9.0-12.2); MONOCYTES % (AUTO) 15 % (0-12); NEUTROPHILS # (AUTO) 4.8 10^3/uL (1.8-7.8); NEUTROPHILS % (AUTO) 74 % (42-75); PLATELET COUNT 147 10^3/uL (130-400); WHITE BLOOD COUNT 6.5 10^3/uL (4.3-11.0)
[2020-09-11 12:31] LABS: CHLORIDE 101 MMOL/L (98-107); POTASSIUM 4.3 MMOL/L (3.6-5.0); SODIUM 134 MMOL/L (135-145)
[2020-09-11 12:32] LABS: CALCIUM 8.3 MG/DL (8.5-10.1)
[2020-09-11 12:33] LABS: GLUCOSE 102 MG/DL (70-105)
[2020-09-11 12:34] LABS: CARBON DIOXIDE 22 MMOL/L (21-32)
[2020-09-11 12:37] LABS: GFR ESTIMATED > 60
[2020-09-11 12:38] LABS: BUN/CREATININE RATIO 13
[2020-09-11] MEDS ORDERED: CEFU250T80 PO (13:04)
--- NOTE | 2020-09-11 13:05 | Diagnostic Imaging Report ---
INDICATION: Pain. Comparison made with prior examination from 03/08/2019. FINDINGS: The heart size, mediastinal configuration, and pulmonary vascularity are within normal limits. There is no pleural effusion, pneumothorax, or pneumonia. The osseous structures are unremarkable. IMPRESSION: No acute cardiopulmonary abnormality. Dictated by: Dictated on workstation # [id number]
[2020-09-11 13:11] VITALS: BP 158/88
== END 2020-09-11 13:11 | disposition home or self-care (01) ==
LOC: EDUNIT# 11:33 → ER 11:36
DX: R09.81 Nasal congestion (principal); I10 Essential (primary) hypertension; K21.9 Gastro-esophageal reflux disease without esophagitis; Z20.822 Contact with and (suspected) exposure to COVID-19; Z87.891 Personal history of nicotine dependence; Z79.82 Long term (current) use of aspirin
CPT/HCPCS: 71045; 80048; 85025; 87804; 99283; U0002; 36415; 87635

== ENCOUNTER 2020-12-29 06:34 | Inpatient (IN) | payer OTHER ==
[~2020-12-29] VITALS: Ht 175 cm; Wt 81.0 kg
[~2020-12-29 06:34] MED LIST changes: +CEFU250T80 PO; -OMEP40CA27 PO; +OMEP40CA6 PO
[2020-12-29] MEDS ORDERED: fentaNYL INJ 100 MCG/2 ML AMP IVP STA ×3 (06:59→10:14)
[2020-12-29 07:11] LABS: BASOPHILS % (AUTO) 1 % (0-10); EOSINOPHILS # (AUTO) 0.3 10^3/uL (0.0-0.3); EOSINOPHILS % (AUTO) 5 % (0-10); HEMATOCRIT 46 % (40-54); HEMOGLOBIN 15.6 g/dL (13.3-17.7); LYMPHOCYTES # (AUTO) 0.9 10^3/uL (1.0-4.0); LYMPHOCYTES % (AUTO) 13 % (12-44); MEAN CORPUSCULAR HEMOGLOBIN 29 pg (25-34); MEAN CORPUSCULAR HGB CONC 34 g/dL (32-36); MEAN CORPUSCULAR VOLUME 84 fL (80-99); MONOCYTES # (AUTO) 0.5 10^3/uL (0.0-1.0); MONOCYTES % (AUTO) 7 % (0-12); NEUTROPHILS % (AUTO) 73 % (42-75); PLATELET COUNT 148 10^3/uL (130-400); WHITE BLOOD COUNT 6.9 10^3/uL (4.3-11.0)
[2020-12-29 07:23] LABS: ALBUMIN 3.6 GM/DL (3.2-4.5); POTASSIUM 3.9 MMOL/L (3.6-5.0)
[2020-12-29 07:24] LABS: CALCIUM 8.1 MG/DL (8.5-10.1)
[2020-12-29 07:25] LABS: TOTAL PROTEIN 6.9 GM/DL (6.4-8.2)
[2020-12-29 07:27] LABS: BILIRUBIN,TOTAL 1.1 MG/DL (0.1-1.0)
[2020-12-29 07:29] LABS: CREATININE SERUM 0.9 MG/DL (0.60-1.30)
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
--- NOTE | 2020-12-29 08:19 | Diagnostic Imaging Report ---
INDICATION: Shoulder pain. 3 views were obtained FINDINGS: There is minimal arthrosis of the acromioclavicular joint. Alignment is normal. There is no fracture or dislocation. Left lung is clear. Soft tissues are unremarkable. IMPRESSION: Minimal arthrosis of the acromioclavicular joint, otherwise unremarkable. Dictated by: Dictated on workstation # [id number]
[2020-12-29] MEDS ORDERED: hydrALAZINE (APESOLINE) 20 MG/ML VIAL IV ONE (10:15)
[2020-12-29 13:07] VITALS: BP 195/104
[2020-12-29] MEDS ORDERED: fentaNYL INJ 100 MCG/2 ML AMP IVP PRN (13:30)
[2020-12-29] MEDS ORDERED: CATHETER FLUSH 10 ML SYR IV PRN (13:30)
[2020-12-29] MEDS ORDERED: ONDANSETRON 4 MG/2 ML (SDV) Z0FRAN IVP PRN (13:30)
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
[2020-12-29 13:43] VITALS: BP 175/98
[2020-12-29] MEDS ORDERED: MULT-1172 PO (14:09)
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
[2020-12-29 16:00] VITALS: BP 152/91
[2020-12-29] MEDS: CATHETER FLUSH 10 ML SYR IV SCH ×2 (16:22→22:23)
[2020-12-29] MEDS ORDERED: RT-ALBUTEROL SULF 2.5 MG/3 ML PRE-MIX VIAL INH PRN ×2 (16:45)
[2020-12-29] MEDS ORDERED: PATIENT MAY USE OWN MEDS, ALL MC SCH (17:45)
[2020-12-29] MEDS: HYDROcodone/APAP 5 MG/325 MG (LORTAB) TAB PO PRN (18:02)
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
[2020-12-29 19:50] VITALS: BP 138/75
[2020-12-29] MEDS: meTOprolol TARTRATE 25 MG (LOPRESSOR) TABLET PO SCH (20:05)
[2020-12-29] MEDS: METHOCARBAMOL 500 MG (ROBAXIN) TABLET PO SCH (20:05)
[2020-12-29] MEDS: [UNRECOGNIZED DRUG - REMARK] PO SCH (20:06)
[2020-12-29] MEDS: TACROLIMUS 1 MG (PROGRAF) CAP NON-FORM PO SCH (20:07)
[2020-12-29 23:44] VITALS: BP 141/67
[2020-12-30] MEDS: HYDROcodone/APAP 5 MG/325 MG (LORTAB) TAB PO PRN ×2 (02:19→19:59)
[2020-12-30 04:51] VITALS: BP 132/67
[2020-12-30] MEDS: CATHETER FLUSH 10 ML SYR IV SCH ×3 (05:52→22:40)
[2020-12-30 06:17] LABS: BASOPHILS % (AUTO) 0 % (0-10); EOSINOPHILS # (AUTO) 0.2 10^3/uL (0.0-0.3); EOSINOPHILS % (AUTO) 2 % (0-10); HEMATOCRIT 42 % (40-54); HEMOGLOBIN 14.2 g/dL (13.3-17.7); LYMPHOCYTES # (AUTO) 0.8 10^3/uL (1.0-4.0); LYMPHOCYTES % (AUTO) 10 % (12-44); MEAN CORPUSCULAR HEMOGLOBIN 29 pg (25-34); MEAN CORPUSCULAR HGB CONC 34 g/dL (32-36); MEAN CORPUSCULAR VOLUME 84 fL (80-99); MEAN PLATELET VOLUME 10.9 fL (9.0-12.2); MONOCYTES # (AUTO) 0.7 10^3/uL (0.0-1.0); MONOCYTES % (AUTO) 9 % (0-12); NEUTROPHILS # (AUTO) 6.4 10^3/uL (1.8-7.8); NEUTROPHILS % (AUTO) 79 % (42-75); PLATELET COUNT 153 10^3/uL (130-400)
[2020-12-30 06:35] LABS: POTASSIUM 4.2 MMOL/L (3.6-5.0)
[2020-12-30 06:40] LABS: CREATININE SERUM 0.82 MG/DL (0.60-1.30)
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
[2020-12-30 07:45] VITALS: BP 144/63
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
[2020-12-30] MEDS ORDERED: MILK OF MAGNESIA 400 MG/5 ML 30 ML UDC PO ONE (09:00)
[2020-12-30] MEDS: PANTOPRAZOLE 40 MG (PROTONIX) TAB PO SCH (09:11)
[2020-12-30] MEDS: LOSARTAN 25 MG (COZAAR) TAB PO SCH (09:11)
[2020-12-30] MEDS: METHOCARBAMOL 500 MG (ROBAXIN) TABLET PO SCH ×3 (09:11→19:57)
[2020-12-30] MEDS: [UNRECOGNIZED DRUG - REMARK] PO SCH (09:12)
[2020-12-30] MEDS: TACROLIMUS 1 MG (PROGRAF) CAP NON-FORM PO SCH ×2 (09:12→19:58)
[2020-12-30] MEDS: SENNA W/DOCUSATE (SENOKOT S) TABLET PO SCH ×2 (09:12→19:59)
[2020-12-30 11:57] VITALS: BP 181/89
[2020-12-30 16:00] VITALS: BP 187/86
[2020-12-30 19:41] VITALS: BP 137/62
[2020-12-30] MEDS: meTOprolol TARTRATE 25 MG (LOPRESSOR) TABLET PO SCH (19:57)
[2020-12-30] MEDS: [UNRECOGNIZED DRUG - REMARK] PO SCH (19:58)
[2020-12-31 00:25] VITALS: BP 132/66
[2020-12-31 04:13] VITALS: BP 124/61
[2020-12-31] MEDS: CATHETER FLUSH 10 ML SYR IV SCH ×2 (06:29→13:26)
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
[2020-12-31 08:00] VITALS: BP 154/76
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
[2020-12-31] MEDS ORDERED: MILK OF MAGNESIA 400 MG/5 ML 30 ML UDC PO ONE (08:30)
[2020-12-31] MEDS: METHOCARBAMOL 500 MG (ROBAXIN) TABLET PO SCH ×2 (09:36→13:26)
[2020-12-31] MEDS: PANTOPRAZOLE 40 MG (PROTONIX) TAB PO SCH (09:36)
[2020-12-31] MEDS: SENNA W/DOCUSATE (SENOKOT S) TABLET PO SCH (09:36)
[2020-12-31] MEDS: LOSARTAN 25 MG (COZAAR) TAB PO SCH (09:36)
[2020-12-31] MEDS: [UNRECOGNIZED DRUG - REMARK] PO SCH (09:37)
[2020-12-31] MEDS: TACROLIMUS 1 MG (PROGRAF) CAP NON-FORM PO SCH (09:38)
[2020-12-31] MEDS: HYDROcodone/APAP 5 MG/325 MG (LORTAB) TAB PO PRN (10:27)
[2020-12-31 11:40] VITALS: BP 126/62
[2020-12-31] MEDS ORDERED: METH-731 PO (13:28)
[2020-12-31] MEDS ORDERED: ACHD5005 PO (13:28)
--- NOTE | 2020-12-31 13:30 | Discharge Inst-Simple/Standard ---
Discharge Inst-Standard Discharge Medications New, Converted or Re-Newed RX: Transmitted to Pharmacy Patient Instructions/Follow Up Plan of Care/Instructions/FU: 2 weeks Bryant 2 weeks Dominga Activity as Tolerated: No Discharge Diet: Regular Diet Other Inst to Patient Follow up Appt: Make appointment for [address] Hurtado and Dominga. Instructions: No lifting greater than 10 pounds. No strenuous activity. May shower. Use incentive spirometer at home as directed 10x per hr. No Smoking Symptoms to Report: Appetite Changes, Extremity Discoloration, Numbness/Tingling, Swelling Increased, Bleeding Excessive, Eyesight Changes, Pain Increased, Urine Color Change, Constipation(Persistent), Fever over 101 degree F, Pain/Pressure in chest, Urinating Difficulty, Cough Up/Vomit Blood, Heart Beat Irreg/Pounding, Pain/Pressure in jaw, Vaginal Bleeding Increase, Cramps in feet or legs, Lightheadedness, Pain/Pressure in shoulder, Diarrhea(Persistent), Memory Changes Suddenly, Questions/Concerns, Weight gain consecutive days, Dizziness/Fainting, Nausea/Vomiting, Shortness of Breath, Weight gain over 2 pounds If questions or concerns contact your physician Or seek help at emergency department. MEL HURTADO DO Dec 31, 2020 13:30
[2020-12-31 14:53] VITALS: BP 126/62
== END 2020-12-31 14:55 | disposition home or self-care (01) | DRG 184 ==
LOC: EDUNIT# 06:34 → ER 06:35 → 4TH 11:37
PROVIDERS: ADMIT Surgery; ATTEND Surgery
DX: S22.41XA Multiple fractures of ribs, right side, initial encounter for closed fracture (principal); Z94.0 Kidney transplant status; Z94.83 Pancreas transplant status; I42.9 Cardiomyopathy, unspecified; I16.0 Hypertensive urgency; I10 Essential (primary) hypertension; S40.012A Contusion of left shoulder, initial encounter; S00.03XA Contusion of scalp, initial encounter; S00.432A Contusion of left ear, initial encounter; S00.83XA Contusion of other part of head, initial encounter; V49.49XA Driver injured in collision with other motor vehicles in traffic accident, initial encounter; Y92.413 State road as the place of occurrence of the external cause; Z87.891 Personal history of nicotine dependence
CPT/HCPCS: 36415; 70450; 71250; 72125; 73030; 74176; 80048; 80053; 85025

== ENCOUNTER 2021-03-25 16:48 | Outpatient (RCR) | payer OTHER ==
[~2021-03-25 16:48] MED LIST changes: +ACHD5005 PO; +METH-731 PO; +MULT-1172 PO
== END 2021-04-22 14:30 | disposition home or self-care (01) ==
PROVIDERS: ATTEND Surgery
DX: M25.512 Pain in left shoulder (principal)

== ENCOUNTER → 2021-04-09 | Outpatient (CLI) | payer OTHER | LOC: ORTHO 13:57 | PROVIDERS: ATTEND Orthopaedic Surgery | DX: S43.112A Subluxation of left acromioclavicular joint, initial encounter (principal); S46.012A Strain of muscle(s) and tendon(s) of the rotator cuff of left shoulder, initial encounter; X58.XXXA Exposure to other specified factors, initial encounter | CPT/HCPCS: 99202 ==

== ENCOUNTER → 2021-04-13 | Outpatient (CLI) | payer OTHER ==
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
== END ==
LOC: RAD 13:21
PROVIDERS: ATTEND Orthopaedic Surgery
DX: S46.092A Other injury of muscle(s) and tendon(s) of the rotator cuff of left shoulder, initial encounter (principal); M25.512 Pain in left shoulder; V89.2XXA Person injured in unspecified motor-vehicle accident, traffic, initial encounter
CPT/HCPCS: 73221

== ENCOUNTER → 2021-04-16 | Outpatient (CLI) | payer OTHER | LOC: ORTHO 14:38 | PROVIDERS: ATTEND Orthopaedic Surgery | DX: S43.119A Subluxation of unspecified acromioclavicular joint, initial encounter (principal); X58.XXXA Exposure to other specified factors, initial encounter | CPT/HCPCS: 99212 ==

== ENCOUNTER → 2021-05-28 | Outpatient (CLI) | payer OTHER | LOC: ORTHO 08:28 | PROVIDERS: ATTEND Orthopaedic Surgery | DX: S43.112A Subluxation of left acromioclavicular joint, initial encounter (principal); X58.XXXA Exposure to other specified factors, initial encounter | CPT/HCPCS: 99212 ==

== ENCOUNTER 2022-02-01 16:50 | Emergency (ER) | payer OTHER ==
[~2022-02-01] VITALS: Ht 175.2 cm; Wt 83.9 kg
--- NOTE | 2022-02-01 18:06 | ED General ---
General Chief Complaint: COVID19 Suspect/Confirmed Stated Complaint: CONGESTION, COUGH Nursing Triage Note: PT TO RM 7 WITH CC OF WHITEHEAD, CONGESTION, COUGH AND BODYACHES SINCE YESTERDAY. PT DENIES NAUSEA AND VOMITING UNKNOWN IF HAS HAD FEVER. PT A&OX4 Source of Information: Patient Exam Limitations: No Limitations History of Present Illness Date Seen by Provider: Feb 01, 2022 Time Seen by Provider: 18:06 Allergies and Home Medications Allergies Coded Allergies: No Known Drug Allergies (Unverified , 04/05/19) Patient Home Medication List Aspirin (Aspirin EC) 81 Mg Tablet.dr, 81 MG PO DAILY, (Reported) Entered as Reported by: KAYLAH MORALES on 02/26/19 110 Hydrocodone Bit/Acetaminophen (HYDROcodone/APAP 5 MG/325 MG TAB) 1 Tab Tab, 1 EA PO Q4H PRN for PAIN-MODERATE (5-7) Prescribed by: MEL DUMAS on 12/31/20 1329 Lactobacillus Acidophilus (Acidophilus) 1 Each Capsule, 2 CAP PO BID, (Reported) Entered as Reported by: MARIA M GRAY on 12/26/162114 Methocarbamol (Methocarbamol) 500 Mg Tablet, 500 MG PO TID Prescribed by: MEL DUMAS on 12/31/20 1328 Metoprolol Tartrate (Metoprolol Tartrate) 25 Mg Tablet, 25 MG PO HS, (Reported) Entered as Reported by: MARIA M GRAY on 12/26/162114 Multivit,Calc,Mins/Iron/Folic (High Potency Multivitamin Tab) 1 Each Tablet, 1 EACH PO DAILY, (Reported) Entered as Reported by: ESHA JURADO on 12/29/20 1409 Mycophenolate Mofetil (Cellcept) 250 Mg Capsule, 500 MG PO DAILY, (Reported) Entered as Reported by: KAYLAH MORALES on 02/26/19 110 Mycophenolate Mofetil (Cellcept) 250 Mg Capsule, 250 MG PO HS, (Reported) Entered as Reported by: KAYLAH MORALES on 02/26/19 110 Omeprazole (Omeprazole) 40 Mg Capsule.dr, 40 MG PO DAILY, (Reported) Entered as Reported by: MARIA M GRAY on 12/26/162114 Tacrolimus (Tacrolimus) 1 Mg Capsule, 2 MG PO DAILY, (Reported) Entered as Reported by: MARIA M GRAY on 12/26/162114 Tacrolimus (Tacrolimus) 1 Mg Capsule, 1 MG PO HS, (Reported) Entered as Reported by: KAYLAH MORALES on 02/26/19 1104 Past Qcpmfog-Pwwoow-Srvyzq Hx Patient Social History Tobacco Use?: No Substance use?: No Alcohol Use?: No Pt feels they are or have been: No Immunizations Up To Date Tetanus Booster (TDap): Less than 5yrs PED Vaccines UTD: No First/Initial COVID19 Vaccinat: VACCINATED Second COVID19 Vaccination Gonzales: SEPTEMBER 10 Third COVID19 Vaccination Date: VACCINATED Seasonal Allergies Seasonal Allergies: Yes (MILD) Past Medical History Surgery/Hospitalization HX: KIDNEY TRANSPLANT Surgeries: Yes (CATARACTS) Eye Surgery, Gallbladder, Kidney Transplant, Orthopedic, Pancreatic, Penile Implant Respiratory: Yes (NO PROBLEMS SINCE 1982) Asthma Cardiac: Yes (chf) Cardiomyopathy, Hypertension Neurological: No Reproductive Disorders: No Sexually Transmitted Disease: No Genitourinary: Yes (Pancreas & kindey transplant ) Renal Failure Gastrointestinal: Yes Gastroesophageal Reflux Musculoskeletal: Yes Fractures Endocrine: No Diabetes, Non-Insulin dep HEENT: Yes (READING GLASSES, DENTURES) Glaucoma Cancer: No Psychosocial: No Integumentary: No Blood Disorders: No Adverse Reaction/Blood Tranf: No (N/A) Family Medical History No Pertinent Family Hx Physical Exam Vital Signs Vital Signs - First Documented 02/01/22 17:10 Temp 39.0 Pulse 109 Resp 20 B/P (MAP) 162/87 (112) Pulse Ox 94 O2 Delivery Room Air Capillary Refill : Less Than 3 Seconds Height, Weight, BMI Height: 5'9" Weight: 180lbs. oz. 81.458921am; 27.00 BMI Method:Stated Progress/Results/Core Measures Suspected Sepsis SIRS Temperature: Pulse: 109 Respiratory Rate: 20 Blood Pressure 162 /87 Mean: 112 Results/Orders Lab Results Laboratory Tests Test 02/01/22 17:17 Range/Units Influenza Type A (RT-PCR) Not Detected Not Detecte Influenza Type B (RT-PCR) Not Detected Not Detecte SARS-CoV-2 RNA (RT-PCR) Detected H Not Detecte My Orders Orders - [employer] [employer] CHIEF Covid 19 Inhouse Test (02/01/22 17:57) Influenza A And B By Pcr (02/01/22 17:57) Bebtelovimab (Bebtelovimab) (02/01/22 19:45) Nursing Communication (Order) (02/01/22 19:31) Ed Iv/Invasive Line Start (02/01/22 19:42) Vital Signs/I&O 02/01/22 17:10 Temp 39.0 Pulse 109 Resp 20 B/P (MAP) 162/87 (112) Pulse Ox 94 O2 Delivery Room Air Capillary Refill : Less Than 3 Seconds Blood Pressure Mean: 112 Departure Impression Primary Impression: COVID-19 Disposition: 01 HOME, SELF-CARE Condition: Stable/Unchanged Departure-Patient Inst. Decision time for Depature: 19:10 Referrals: MEL DUMAS DO (PCP) Primary Care Physician Patient Instructions: COVID-19 ED Add. Discharge Instructions: Plan: 1. Discharge home. You received Monoclonal antibody infusion in ER today. Return for any allergic reaction symptoms. 2. Stay home for 5 days and then mask when in public for additional 5 days. If you are still running fever, you will need to stay home until you are fever free. 3. Wash your hands frequently, disinfect surfaces at home. Try to isolate yourself from others in the house as much as you are able. 4. Clean areas that may have blood, stool, or body fluids on them. 5. Cover your mouth and nose when you cough or sneeze, throw away tissues, and wash hands immediately. 6. Return to ER if you develop: trouble breathing, persistent pain or pressur in the chest, new confusion, inabililty to wake or stay awake, pale, swartz, blue- colored skin, lips, or nail beds depending on skin tone. 7. Return to ER for any other new, concerning, or worsening symptoms. All discharge instructions reviewed with patient and/or family. Voiced understanding. SHE[employer]LEY [employer] CHIE[employer] Feb 01, 2022 18:06
[2022-02-01] MEDS ORDERED: BEBTELOVIMAB 175 MG/2 ML VIAL IV ONE (19:45)
[2022-02-01 20:17] VITALS: BP 157/88
== END 2022-02-01 20:56 | disposition home or self-care (01) ==
LOC: EDUNIT# 16:50 → ER 16:52
DX: U07.1 COVID-19 (principal)
CPT/HCPCS: 87636

== ENCOUNTER 2022-05-17 07:50 | Emergency (ER) | payer MEDICARE, OTHER ==
[~2022-05-17] VITALS: Ht 175 cm; Wt 79.3 kg
--- NOTE | 2022-05-17 08:36 | ED Cough/URI ---
General Chief Complaint: Cough/Cold/Flu Symptoms Stated Complaint: FLU-LIKE SYMPTOMS History of Present Illness Date Seen by Provider: May 17, 2022 Time Seen by Provider: 08:30 Initial Comments 66-year-old male with PMH of kidney and pancreas transplant on immunosuppression drug/hypertension/remote history of asthma, is here with complaints of sinus drainage, sneezing, coughing with sputum production, body aches and myalgia for the past 2 days. Symptoms began on Tuesday afternoon. Denies any known sick contacts, abdominal pain, nausea and vomiting, diarrhea, chest pain, shortness of breath. Allergies and Home Medications Allergies Coded Allergies: ibuprofen (Verified Adverse Reaction, Unknown, 05/17/22) Uncoded Allergies: CONTRAST IV DYE (Adverse Reaction, Unknown, 05/17/22) Patient Home Medication List Home Medication List Reviewed: Yes Aspirin (Aspirin EC) 81 Mg Tablet.dr, 81 MG PO DAILY, (Reported) Entered as Reported by: KAYLAH MORALES on 02/26/19 110 Hydrocodone Bit/Acetaminophen (HYDROcodone/APAP 5 MG/325 MG TAB) 1 Tab Tab, 1 EA PO Q4H PRN for PAIN-MODERATE (5-7) Prescribed by: MEL DUMAS on 12/31/20 1329 Lactobacillus Acidophilus (Acidophilus) 1 Each Capsule, 2 CAP PO BID, (Reported) Entered as Reported by: MARIA M GRAY on 12/26/162114 Methocarbamol (Methocarbamol) 500 Mg Tablet, 500 MG PO TID Prescribed by: MEL DUMAS on 12/31/20 1328 Metoprolol Tartrate (Metoprolol Tartrate) 25 Mg Tablet, 25 MG PO HS, (Reported) Entered as Reported by: MARIA M GRAY on 12/26/16 211 Multivit,Calc,Mins/Iron/Folic (High Potency Multivitamin Tab) 1 Each Tablet, 1 EACH PO DAILY, (Reported) Entered as Reported by: ESHA JURADO on 12/29/20 1409 Mycophenolate Mofetil (Cellcept) 250 Mg Capsule, 500 MG PO DAILY, (Reported) Entered as Reported by: KAYLAH MORALES on 02/26/19 110 Mycophenolate Mofetil (Cellcept) 250 Mg Capsule, 250 MG PO HS, (Reported) Entered as Reported by: KAYLAH MORALES on 02/26/19 1104 Omeprazole (Omeprazole) 40 Mg Capsule.dr, 40 MG PO DAILY, (Reported) Entered as Reported by: MARIA M GRAY on 12/26/162114 Tacrolimus (Tacrolimus) 1 Mg Capsule, 2 MG PO DAILY, (Reported) Entered as Reported by: MARIA M GRAY on 12/26/162114 Tacrolimus (Tacrolimus) 1 Mg Capsule, 1 MG PO HS, (Reported) Entered as Reported by: KAYLAH MORALES on 02/26/191103 Review of Systems Review of Systems Constitutional: chills, malaise EENTM: nose congestion Respiratory: cough, phlegm Cardiovascular: no symptoms reported Gastrointestinal: no symptoms reported Genitourinary: no symptoms reported Musculoskeletal: no symptoms reported Skin: no symptoms reported Psychiatric/Neurological: No Symptoms Reported Hematologic/Lymphatic: No Symptoms Reported Immunological/Allergic: no symptoms reported Past Htfufxd-Cpgynq-Tqpmhn Hx Immunizations Up To Date Tetanus Booster (TDap): Less than 5yrs PED Vaccines UTD: No First/Initial COVID19 Vaccinat: VACCINATED Second COVID19 Vaccination Gonzales: SEPTEMBER 10 Third COVID19 Vaccination Date: VACCINATED Seasonal Allergies Seasonal Allergies: Yes (MILD) Past Medical History Surgery/Hospitalization HX: KIDNEY TRANSPLANT Surgeries: Yes (CATARACTS) Eye Surgery, Gallbladder, Kidney Transplant, Orthopedic, Pancreatic, Penile Implant Respiratory: Yes (NO PROBLEMS SINCE 1982) Asthma Cardiac: Yes (chf) Cardiomyopathy, Hypertension Neurological: No Reproductive Disorders: No Sexually Transmitted Disease: No Genitourinary: Yes (Pancreas & kindey transplant ) Renal Failure Gastrointestinal: Yes Gastroesophageal Reflux Musculoskeletal: Yes Fractures Endocrine: No Diabetes, Non-Insulin dep HEENT: Yes (READING GLASSES, DENTURES) Glaucoma Cancer: No Psychosocial: No Integumentary: No Blood Disorders: No Adverse Reaction/Blood Tranf: No (N/A) Family Medical History No Pertinent Family Hx Physical Exam Vital Signs - First Documented 05/17/22 08:31 Temp 36.8 Pulse 72 Resp 16 B/P (MAP) 161/85 (110) Pulse Ox 97 Capillary Refill : Height: 5'9" Weight: 180lbs. oz. 81.333545ve; 27.00 BMI Method:Stated General Appearance: WD/WN, no apparent distress HEENT: PERRL/EOMI, normal ENT inspection Neck: non-tender, full range of motion, supple, normal inspection Respiratory: chest non-tender, lungs clear, normal breath sounds, no respiratory distress Cardiovascular: regular rate, rhythm Gastrointestinal: normal bowel sounds, non tender, soft Extremities: normal range of motion Neurologic/Psychiatric: alert, normal mood/affect, oriented x 3 Skin: normal color Progress/Results/Core Measures Suspected Sepsis SIRS Temperature: Pulse: Respiratory Rate: Blood Pressure / Mean: Results/Orders Lab Results Laboratory Tests Test 05/17/22 08:37 05/17/22 08:56 05/17/22 08:58 Range/Units Influenza Type A (RT-PCR) Detected H Not Detecte Influenza Type B (RT-PCR) Not Detected Not Detecte SARS-CoV-2 RNA (RT-PCR) Not Detected Not Detecte Urine Color YELLOW Urine Clarity CLEAR Urine pH 6.0 5-9 Urine Specific [place] >=1.030 1.016-1.022 Urine Protein NEGATIVE NEGATIVE Urine Glucose (UA) NEGATIVE NEGATIVE Urine Ketones 1+ H NEGATIVE Urine Nitrite NEGATIVE NEGATIVE Urine Bilirubin NEGATIVE NEGATIVE Urine Urobilinogen 1.0 < = 1.0 MG/DL Urine Leukocyte Esterase NEGATIVE NEGATIVE Urine RBC (Auto) NEGATIVE NEGATIVE Urine RBC RARE /HPF Urine WBC 0-2 /HPF Urine Squamous Epithelial Cells RARE /HPF Urine Crystals NONE /LPF Urine Bacteria TRACE /HPF Urine Casts NONE /LPF Urine Mucus SMALL H /LPF Urine Culture Indicated NO Urine Opiates Screen NEGATIVE NEGATIVE Urine Oxycodone Screen NEGATIVE NEGATIVE Urine Methadone Screen NEGATIVE NEGATIVE Urine Propoxyphene Screen NEGATIVE NEGATIVE Urine Barbiturates Screen NEGATIVE NEGATIVE Ur Tricyclic Antidepressants Screen NEGATIVE NEGATIVE Urine Phencyclidine Screen NEGATIVE NEGATIVE Urine Amphetamines Screen NEGATIVE NEGATIVE Urine Methamphetamines Screen NEGATIVE NEGATIVE Urine Benzodiazepines Screen NEGATIVE NEGATIVE Urine Cocaine Screen NEGATIVE NEGATIVE Urine Cannabinoids Screen NEGATIVE NEGATIVE Group A Streptococcus Screen NEGATIVE NEGATIVE My Orders Orders - YUDELKA MOSS MD Covid 19 Inhouse Test (05/17/22 08:05) Influenza A And B By Pcr (05/17/22 08:05) Rapid Strep A Screen (05/17/22 08:05) Drug Screen Stat (Urine) (05/17/22 08:37) Ua Culture If Indicated (05/17/22 08:37) Vital Signs/I&O 05/17/22 08:31 Temp 36.8 Pulse 72 Resp 16 B/P (MAP) 161/85 (110) Pulse Ox 97 Capillary Refill : Progress Note : Progress Note 1. INFLUENZA A: - COVID test/ Rapid strep test: Negative - Rapid flu test: Positive for influenza A - Tamiflu twice a day for 5 days, dispensed from the ER - Advised adequate hydration, Tylenol or Ibuprofen prn fever or body aches -Advised mobility around the house to continue moving around - Follow up with PCP in 3 to 7 days Departure Impression Primary Impression: Influenza A Disposition: 01 HOME, SELF-CARE Condition: Stable Departure-Patient Inst. Referrals: VESNA FAUSTIN DO (PCP/Family) Primary Care Physician Patient Instructions: Flu, Adult (DC), Flu Add. Discharge Instructions: - Tamiflu twice a day for 5 days, dispensed from the ER - Advised adequate hydration, Tylenol or Ibuprofen prn fever or body aches -Advised mobility around the house to continue moving around - Follow up with PCP in 3 to 7 days All discharge instructions reviewed with patient and/or family. Voiced understanding. YUDELKA MOSS MD May 17, 2022 08:36
[2022-05-17 09:10] LABS: BILIRUBIN,URINE NEGATIVE (NEGATIVE); CLARITY,URINE CLEAR; COLOR,URINE YELLOW; GLUCOSE, URINE (UA) NEGATIVE (NEGATIVE); KETONES,URINE 1+ (NEGATIVE); LEUKOCYTE ESTERASE ,URINE NEGATIVE (NEGATIVE); NITRITE,URINE NEGATIVE (NEGATIVE); PROTEIN,URINE NEGATIVE (NEGATIVE)
[2022-05-17 09:18] LABS: AMPHETAMINE SCREEN, URINE NEGATIVE (NEGATIVE); BARBITURATE SCREEN URINE NEGATIVE (NEGATIVE); BENZODIAZEPINES SCREEN URINE NEGATIVE (NEGATIVE); CANNABINOID SCREEN, URINE NEGATIVE (NEGATIVE); COCAINE SCREEN URINE NEGATIVE (NEGATIVE); METHADONE STAT NEGATIVE (NEGATIVE); OPIATE SCREEN URINE NEGATIVE (NEGATIVE); OXYCODONE STAT NEGATIVE (NEGATIVE); PROPOXYPHENE STAT NEGATIVE (NEGATIVE); TRICYCLIC ANTIDEPRESSANTS SCRE NEGATIVE (NEGATIVE)
[2022-05-17 09:35] LABS: BACTERIA,URINE TRACE /HPF; RBC,URINE RARE /HPF; SQUAMOUS EPITHELIAL CELL,UR RARE /HPF; WBC,URINE 0-2 /HPF
[2022-05-17] MEDS ORDERED: RX-OSELTAMIVIR 75 MG (TAMIFLU) BOX OF 10 PO STA (09:47)
[2022-05-17] MEDS ORDERED: RX-OSELTAMIVIR 75 MG (TAMIFLU) BOX OF 10 PO ONE (09:51)
[2022-05-17 09:54] VITALS: BP 140/80
== END 2022-05-17 09:53 | disposition home or self-care (01) ==
LOC: EDUNIT# 07:50 → ER 07:55
DX: J10.1 Influenza due to other identified influenza virus with other respiratory manifestations (principal); Z88.6 Allergy status to analgesic agent; Z20.822 Contact with and (suspected) exposure to COVID-19
CPT/HCPCS: 80306; 81000; 87430; 87636; 99283